=== PATIENT | female | born 1990 | race Caucasian/White ===

== ENCOUNTER 2017-01-18 20:10 | Inpatient (IN) | payer SELFPAY ==
[2017-01-18] MEDS ORDERED: Morphine INJ* 4 MG/ML 1 ML CARPUJECT IV ONE (20:43)
[2017-01-18] MEDS ORDERED: Ondansetron INJ* 2 MG/ML VIAL IV ONE (20:43)
[2017-01-18 20:52] LABS: Hematocrit 40 % (35-47); Hemoglobin 13.5 g/dl (12.0-16.0); Mean Corpuscular HGB Conc 34 g/dl (31-36); Mean Corpuscular Hemoglobin 30 pg (27-31); Mean Corpuscular Volume 89 fL (80-97); Mean Platelet Volume 11 um3 (7.4-10.4); Red Blood Count 4.47 10^6/ul (4.0-5.4); Red Cell Distribution Width 13 % (10.5-15); White Blood Count 12.1 10^3/ul (3.5-10.8)
[2017-01-18 21:07] LABS: ALT 11 U/L (7-52); AST 20 U/L (13-39); Albumin 4.3 g/dL (3.2-5.2); Alkaline Phosphatase 47 U/L (34-104); Anion Gap 8 mmol/L (2-11); BUN/Creatinine Ratio 22.1 (8-20); Blood Urea Nitrogen 21 mg/dL (6-24); CO2 Carbon Dioxide 26 mmol/L (22-32); Calcium 9.4 mg/dL (8.6-10.3); Chloride 101 mmol/L (101-111); EGFR African American 91.4 (>60); EGFR Non-African American 71.1 (>60); Globulin 2.9 g/dL (2-4); Glucose 121 mg/dL (70-100); Lipase 22 U/L (11.0-82.0); Potassium 3.6 mmol/L (3.5-5.0); Sodium 135 mmol/L (133-145); Total Protein 7.2 g/dL (6.4-8.9)
--- NOTE | 2017-01-18 21:48 | RAD ---
INDICATION: Epigastric pain. COMPARISON: There are no prior studies available for comparison. TECHNIQUE: Multiple real-time images of the right upper quadrant were obtained. FINDINGS: The gallbladder appear normal. No gallbladder wall thickening or pericholecystic fluid is present. No intra or extrahepatic ductal distention is present. The common bile duct measured 0.4 cm in diameter. The liver is normal in size without significant focal abnormality. The pancreas is partially obscured by overlying bowel gas. The visualized portion appeared normal. No ductal distention is seen. The right kidney is normal in size without evidence for hydronephrosis. IMPRESSION: NEGATIVE EXAM.
--- NOTE | 2017-01-18 21:53 | RAD ---
INDICATION: Suprapubic pelvic pain. COMPARISON: There are no prior studies available for comparison. TECHNIQUE: Multiple real-time transvaginal images of the pelvis were obtained. FINDINGS: The uterus is normal in size, shape and echogenicity. The uterus measured 8.0 x 3.1 x 4.5 cm. The endometrial echo measured 0.4 cm in thickness. The right ovary measured 2.8 x 1.4 x 1.0 cm. The left ovary measured 3.1 x 1.5 x 1.9 cm. There is vascular flow within both ovaries. There is a small amount of free intraperitoneal fluid in the cul-de-sac and left adnexal region. IMPRESSION: SMALL AMOUNT OF FREE INTRAPERITONEAL FLUID, OTHERWISE UNREMARKABLE STUDY.
[2017-01-18] MEDS ORDERED: Ketorolac INJ* 30 MG/ML 1 ML VIAL IV PUSH ONE (22:06)
[2017-01-18 22:07] LABS: Urine Bilirubin Negative (Negative); Urine Glucose Negative (Negative); Urine Nitrite Negative (Negative)
[2017-01-18] MEDS ORDERED: Ketorolac INJ* 30 MG/ML 1 ML VIAL ONE (22:07)
[2017-01-18 22:17] LABS: Trichomonas Source Endocervical (Negative)
[2017-01-19] MEDS ORDERED: Iohexol 300* (CONTRAST) 10 ML SDV IV ONE (00:05)
--- NOTE | 2017-01-19 00:32 | ED ---
Abdominal Pain/Female - HPI Summary HPI Summary: 27F presents with sudden onset of sharp pain in midabdomen today. She admits to nausea and vomiting. She has never had this before. She states pain is greatest in epigastric region and radiates to bilateral lower quadrants. no vaginal discharge. has appendectomy 4 years ago. no dysuria, hematuria, flank pain, urgency, or dysuria. Pain started out of nowhere and has been coming in waves. took ibuprofen for pain without relief. She denies any flatus, diarrhea or constipation. pain is 10/. - History of Current Complaint Chief Complaint: EDAbdPain Stated Complaint: ABD PAIN Time Seen by Provider: 01/18/17 20:32 Pain Intensity: 10 Allergies/Adverse Reactions: Allergies Allergy/AdvReac Type Severity Reaction Status Date / Time No Known Allergies Allergy Verified 01/18/17 20:30 Home Medications: Home Medications NK [No Home Medications Reported] 01/19/17 [History Confirmed 01/19/17] PMH/Surg Hx/FS Hx/Imm Hx Endocrine/Hematology History: Denies: Hx Diabetes Cardiovascular History: Denies: Hx Hypertension History: Denies: Hx Dialysis, Hx Renal Disease - Surgical History Surgery Procedure, Year, and Place: APPY Infectious Disease History: No Infectious Disease History: Denies: Traveled Outside the [place] in Last 30 Days - Family History Known Family History: Negative: Diabetes - Social History Alcohol Use: Occasionally Substance Use Type: Reports: None Smoking Status (MU): Never Smoked Tobacco Review of Systems Negative: Fever Negative: Chest Pain Negative: Shortness Of Breath Positive: Abdominal Pain, Vomiting. Negative: Diarrhea All Other Systems Reviewed And Are Negative: Yes Physical Exam Triage Information Reviewed: Yes Vital Signs On Initial Exam: Initial Vitals Temp Pulse Resp BP Pulse Ox 96.8 F 90 22 131/67 98 01/18/17 20:11 01/18/17 20:11 01/18/17 20:11 01/18/17 20:11 01/18/17 20:11 Vital Signs Reviewed: Yes Appearance: Positive: Pain Distress Skin: Positive: Warm, Dry Head/Face: Positive: Normal Head/Face Inspection Eyes: Positive: Normal, EOMI, MARIE, Conjunctiva Clear ENT: Positive: Normal ENT inspection, Pharynx normal, TMs normal Respiratory/Lung Sounds: Positive: Clear to Auscultation, Breath Sounds Present Cardiovascular: Positive: Normal, RRR Abdomen Description: Positive: Soft, Other: - tenderness epigastric and bilateral lower quadrants Bowel Sounds: Positive: Present Pelvic Exam: Positive: external exam normal, speculum exam normal, bimanual exam normal, no cerv. motion tender Musculoskeletal: Positive: Normal Neurological: Positive: Normal Psychiatric: Positive: Normal - Fany Coma Scale Coma Scale Total: 15 Diagnostics - Vital Signs Vital Signs Temp Pulse Resp BP Pulse Ox 01/18/17 20:47 20 01/18/17 20:11 96.8 F 90 22 131/67 98 - Laboratory Lab Results: Lab Results 01/18/17 01/18/17 01/18/17 Range/Units 20:40 20:40 21:55 WBC 12.1 H (3.5-10.8) 10^3/ul RBC 4.47 (4.0-5.4) 10^6/ul Hgb 13.5 (12.0-16.0) g/dl Hct 40 (35-47) % MCV 89 (80-97) fL MCH 30 (27-31) pg MCHC 34 (31-36) g/dl RDW 13 (10.5-15) % Plt Count 176 (150-450) 10^3/ul MPV 11 H (7.4-10.4) um3 Neut % (Auto) 80.3 (38-83) % Lymph % (Auto) 13.5 L (25-47) % [place] % (Auto) 5.7 (1-9) % Eos % (Auto) 0.1 (0-6) % Baso % (Auto) 0.4 (0-2) % Absolute Neuts (auto) 9.7 H (1.5-7.7) 10^3/ul Absolute Lymphs (auto) 1.6 (1.0-4.8) 10^3/ul Absolute Monos (auto) 0.7 (0-0.8) 10^3/ul Absolute Eos (auto) 0 (0-0.6) 10^3/ul Absolute Basos (auto) 0 (0-0.2) 10^3/ul Absolute Nucleated RBC 0 10^3/ul Nucleated RBC % 0 Sodium 135 (133-145) mmol/L Potassium 3.6 (3.5-5.0) mmol/L Chloride 101 (101-111) mmol/L Carbon Dioxide 26 (22-32) mmol/L Anion Gap 8 (2-11) mmol/L BUN 21 (6-24) mg/dL Creatinine 0.95 (0.51-0.95) mg/dL Est GFR ( Amer) 91.4 (>60) Est GFR (Non-Af Amer) 71.1 (>60) BUN/Creatinine Ratio 22.1 H (8-20) Glucose 121 H (70-100) mg/dL Calcium 9.4 (8.6-10.3) mg/dL Total Bilirubin 0.50 (0.2-1.0) mg/dL AST 20 (13-39) U/L ALT 11 (7-52) U/L Alkaline Phosphatase 47 (34-104) U/L Troponin I 0.00 (<0.04) ng/mL C-React Prot High Sens 0.71 mg/L Total Protein 7.2 (6.4-8.9) g/dL Albumin 4.3 (3.2-5.2) g/dL Globulin 2.9 (2-4) g/dL Albumin/Globulin Ratio 1.5 (1-3) Lipase 22 (11.0-82.0) U/L Beta HCG, Quant < 0.60 mIU/mL Urine Color Yellow Urine Appearance Clear Urine pH 6.0 (5-9) Ur Specific [place] 1.026 (1.010-1.030) Urine Protein Negative (Negative) Urine Ketones 1+ H (Negative) Urine Blood Negative (Negative) Urine Nitrate Negative (Negative) Urine Bilirubin Negative (Negative) Urine Urobilinogen Negative (Negative) Ur Leukocyte Esterase Negative (Negative) Urine Glucose Negative (Negative) Urine Ascorbic Acid * H (Negative) C.trachomatis (Amp Det) N.gonorrhoeae (Amp Det) T.vaginalis (Amp Det) 01/18/17 Range/Units 22:10 WBC (3.5-10.8) 10^3/ul RBC (4.0-5.4) 10^6/ul Hgb (12.0-16.0) g/dl Hct (35-47) % MCV (80-97) fL MCH (27-31) pg MCHC (31-36) g/dl RDW (10.5-15) % Plt Count (150-450) 10^3/ul MPV (7.4-10.4) um3 Neut % (Auto) (38-83) % Lymph % (Auto) (25-47) % [place] % (Auto) (1-9) % Eos % (Auto) (0-6) % Baso % (Auto) (0-2) % Absolute Neuts (auto) (1.5-7.7) 10^3/ul Absolute Lymphs (auto) (1.0-4.8) 10^3/ul Absolute Monos (auto) (0-0.8) 10^3/ul Absolute Eos (auto) (0-0.6) 10^3/ul Absolute Basos (auto) (0-0.2) 10^3/ul Absolute Nucleated RBC 10^3/ul Nucleated RBC % Sodium (133-145) mmol/L Potassium (3.5-5.0) mmol/L Chloride (101-111) mmol/L Carbon Dioxide (22-32) mmol/L Anion Gap (2-11) mmol/L BUN (6-24) mg/dL Creatinine (0.51-0.95) mg/dL Est GFR ( Amer) (>60) Est GFR (Non-Af Amer) (>60) BUN/Creatinine Ratio (8-20) Glucose (70-100) mg/dL Calcium (8.6-10.3) mg/dL Total Bilirubin (0.2-1.0) mg/dL AST (13-39) U/L ALT (7-52) U/L Alkaline Phosphatase (34-104) U/L Troponin I (<0.04) ng/mL C-React Prot High Sens mg/L Total Protein (6.4-8.9) g/dL Albumin (3.2-5.2) g/dL Globulin (2-4) g/dL Albumin/Globulin Ratio (1-3) Lipase (11.0-82.0) U/L Beta HCG, Quant mIU/mL Urine Color Urine Appearance Urine pH (5-9) Ur Specific [place] (1.010-1.030) Urine Protein (Negative) Urine Ketones (Negative) Urine Blood (Negative) Urine Nitrate (Negative) Urine Bilirubin (Negative) Urine Urobilinogen (Negative) Ur Leukocyte Esterase (Negative) Urine Glucose (Negative) Urine Ascorbic Acid (Negative) C.trachomatis (Amp Det) Pending N.gonorrhoeae (Amp Det) Pending T.vaginalis (Amp Det) Pending Result Diagrams: 01/18/17 20:40 01/18/17 20:40 Lab Statement: Any lab studies that have been ordered have been reviewed, and results considered in the medical decision making process. - CT abd CT Interpretation: Positive (See Comments) - small bowel obstruction with probable transition point near appendectomy CT Interpretation Completed By: Radiologist - Ultrasound No standard instances Ultrasound Interpretation: No Acute Changes Ultrasound Interpretation Completed By: Radiologist Abdominal Pain Fem Course/Dx - Course Course Of Treatment: 27F presents with sudden onset of sharp pain in midabdomen today. She admits to nausea and vomiting. She has never had this before. She states pain is greatest in epigastric region and radiates to bilateral lower quadrants. no vaginal discharge. has appendectomy 4 years ago. no dysuria, hematuria, flank pain, urgency, or dysuria. Pain started out of nowhere and has been coming in waves. took ibuprofen for pain without relief. She denies any flatus, diarrhea or constipation. pain is 10/10. on exam tender in epigastric, RLQ, and LLQ. got u/s gallbladder and pelvis and normal. labs wbc 12. pelvic exam normal. patient still in moderate amount of pain so got CT. CT is showing SBO. discussed wtih dr forrester who agrees to admit. patient agrees to admission. - Diagnoses Differential Diagnosis: Positive: Bowel Obstruction, Gall Bladder Disease, Pelvic Inflammatory Disease Provider Diagnoses: Small bowel obstruction Discharge - Discharge Plan Condition: Stable Disposition: ADMITTED TO [facility] Referrals: No Primary Care Phys,NOPCP [Primary Care Provider] -
[2017-01-19] MEDS ORDERED: Acetaminophen SUPP* 650 MG SUPP PR PRN (00:42)
[2017-01-19] MEDS ORDERED: Famotidine IV * 20 MG in NS 0.9% 100 ML* 100 ML IV ONE (00:43)
[2017-01-19] MEDS: fentaNYL* 50 MCG/ML 2 ML VIAL (100 MCG VIAL) IV SLOW PU PRN ×3 (01:57→06:16)
[2017-01-19] MEDS ORDERED: Famotidine IV* 10 MG/ML 2 ML (20 mg) IV ONE (02:00)
--- NOTE | 2017-01-19 04:17 | HP ---
H&P (Free Text) History and Physical: PCP: none Date/Time: 01/19/2017 0040 CC: abdominal pain, N/V HPI: Ms Xavier is a 27YO female HX remote appendectomy presenting with onset the AM of 01/18 of diffuse cramping abdominal pain which progressed throughout the day to become severe and associated with N/V and subjective F/C, but no sweats, chest pain, SOB, or other issues. ED evaluation is notable for a CT finding of SBO with transition in the RLQ near the appendiceal clips. PMedHx denies Ambulatory Orders NK [No Home Medications Reported] 01/19/17 Allergies No Known Allergies Allergy (Verified 01/18/17 20:30) PSurgHx appendectomy SocHx: no tobacco, alcohol, or recreational drugs; single, lives with a roommate ; [employer] certified registered dental assistant; full code status FamHx: Mother, Father, & Brother: healthy ROS: as above, otherwise reviewed and all were negative vitals: Vital Signs Temp 36.9 C 01/19/17 03:20 Pulse 57 01/19/17 03:20 Resp 14 01/19/17 03:20 BP 117/57 01/19/17 03:20 Pulse Ox 97 01/19/17 03:20 Intake & Output 01/18/17 01/18/17 01/19/17 11:59 23:59 11:59 Weight 61.235 kg 61.235 kg Constitutional: NAD, normally developed, well-nourished white female HEENM: atraumatic; sclera/conjunctiva: anicteric/clear; hearing: clinically intact; oropharynx: clear, mucosa moist Neck: soft tissue: non-tender; thyroid: normal Pulmonary: clear to auscultation bilaterally, good aeration, no accessory muscle use CV: RR/RR, normal S1S2, no carotid bruit, no jugular venous distention, 2+ B DP/ PT, no edema Abdominal: soft, mildly distended, mild/mod diffuse tenderness, no rebound/ guarding/rigidity, hypoactive bowel sounds, no hepatosplenomegaly or masses, no costovertebral angle tenderness Musculoskeletal: general: grossly intact; gait: stable Integumental: normal appearance and texture of exposed skin Psychiatric orientation: AA&O to PPS affect: calm mood: cooperative eye contact: good content: reliable responses: timely insight: good Testing: Lab Results 01/18/17 01/18/17 01/18/17 Range/Units 20:40 20:40 21:55 WBC 12.1 H (3.5-10.8) 10^3/ul RBC 4.47 (4.0-5.4) 10^6/ul Hgb 13.5 (12.0-16.0) g/dl Hct 40 (35-47) % MCV 89 (80-97) fL MCH 30 (27-31) pg MCHC 34 (31-36) g/dl RDW 13 (10.5-15) % Plt Count 176 (150-450) 10^3/ul MPV 11 H (7.4-10.4) um3 Neut % (Auto) 80.3 (38-83) % Lymph % (Auto) 13.5 L (25-47) % [place] % (Auto) 5.7 (1-9) % Eos % (Auto) 0.1 (0-6) % Baso % (Auto) 0.4 (0-2) % Absolute Neuts (auto) 9.7 H (1.5-7.7) 10^3/ul Absolute Lymphs (auto) 1.6 (1.0-4.8) 10^3/ul Absolute Monos (auto) 0.7 (0-0.8) 10^3/ul Absolute Eos (auto) 0 (0-0.6) 10^3/ul Absolute Basos (auto) 0 (0-0.2) 10^3/ul Absolute Nucleated RBC 0 10^3/ul Nucleated RBC % 0 Sodium 135 (133-145) mmol/L Potassium 3.6 (3.5-5.0) mmol/L Chloride 101 (101-111) mmol/L Carbon Dioxide 26 (22-32) mmol/L Anion Gap 8 (2-11) mmol/L BUN 21 (6-24) mg/dL Creatinine 0.95 (0.51-0.95) mg/dL Est GFR ( Amer) 91.4 (>60) Est GFR (Non-Af Amer) 71.1 (>60) BUN/Creatinine Ratio 22.1 H (8-20) Glucose 121 H (70-100) mg/dL Calcium 9.4 (8.6-10.3) mg/dL Total Bilirubin 0.50 (0.2-1.0) mg/dL AST 20 (13-39) U/L ALT 11 (7-52) U/L Alkaline Phosphatase 47 (34-104) U/L Troponin I 0.00 (<0.04) ng/mL C-React Prot High Sens 0.71 mg/L Total Protein 7.2 (6.4-8.9) g/dL Albumin 4.3 (3.2-5.2) g/dL Globulin 2.9 (2-4) g/dL Albumin/Globulin Ratio 1.5 (1-3) Lipase 22 (11.0-82.0) U/L Beta HCG, Quant < 0.60 mIU/mL Urine Color Yellow Urine Appearance Clear Urine pH 6.0 (5-9) Ur Specific [place] 1.026 (1.010-1.030) Urine Protein Negative (Negative) Urine Ketones 1+ H (Negative) Urine Blood Negative (Negative) Urine Nitrate Negative (Negative) Urine Bilirubin Negative (Negative) Urine Urobilinogen Negative (Negative) Ur Leukocyte Esterase Negative (Negative) Urine Glucose Negative (Negative) Urine Ascorbic Acid * H (Negative) C.trachomatis (Amp Det) N.gonorrhoeae (Amp Det) T.vaginalis (Amp Det) 01/18/17 Range/Units 22:10 WBC (3.5-10.8) 10^3/ul RBC (4.0-5.4) 10^6/ul Hgb (12.0-16.0) g/dl Hct (35-47) % MCV (80-97) fL MCH (27-31) pg MCHC (31-36) g/dl RDW (10.5-15) % Plt Count (150-450) 10^3/ul MPV (7.4-10.4) um3 Neut % (Auto) (38-83) % Lymph % (Auto) (25-47) % [place] % (Auto) (1-9) % Eos % (Auto) (0-6) % Baso % (Auto) (0-2) % Absolute Neuts (auto) (1.5-7.7) 10^3/ul Absolute Lymphs (auto) (1.0-4.8) 10^3/ul Absolute Monos (auto) (0-0.8) 10^3/ul Absolute Eos (auto) (0-0.6) 10^3/ul Absolute Basos (auto) (0-0.2) 10^3/ul Absolute Nucleated RBC 10^3/ul Nucleated RBC % Sodium (133-145) mmol/L Potassium (3.5-5.0) mmol/L Chloride (101-111) mmol/L Carbon Dioxide (22-32) mmol/L Anion Gap (2-11) mmol/L BUN (6-24) mg/dL Creatinine (0.51-0.95) mg/dL Est GFR ( Amer) (>60) Est GFR (Non-Af Amer) (>60) BUN/Creatinine Ratio (8-20) Glucose (70-100) mg/dL Calcium (8.6-10.3) mg/dL Total Bilirubin (0.2-1.0) mg/dL AST (13-39) U/L ALT (7-52) U/L Alkaline Phosphatase (34-104) U/L Troponin I (<0.04) ng/mL C-React Prot High Sens mg/L Total Protein (6.4-8.9) g/dL Albumin (3.2-5.2) g/dL Globulin (2-4) g/dL Albumin/Globulin Ratio (1-3) Lipase (11.0-82.0) U/L Beta HCG, Quant mIU/mL Urine Color Urine Appearance Urine pH (5-9) Ur Specific [place] (1.010-1.030) Urine Protein (Negative) Urine Ketones (Negative) Urine Blood (Negative) Urine Nitrate (Negative) Urine Bilirubin (Negative) Urine Urobilinogen (Negative) Ur Leukocyte Esterase (Negative) Urine Glucose (Negative) Urine Ascorbic Acid (Negative) C.trachomatis (Amp Det) Pending N.gonorrhoeae (Amp Det) Pending T.vaginalis (Amp Det) Pending CT abd/pel W, personally reviewed: small bowel obstruction with probable transition point near appendectomy sutures suggesting adhesions. US transvaginal: IMPRESSION: SMALL AMOUNT OF FREE INTRAPERITONEAL FLUID, OTHERWISE UNREMARKABLE STUDY. US RUQ: IMPRESSION: NEGATIVE EXAM. Impression: 27F HX appendectomy presents with SBO DIAGNOSIS & PLAN Primary SBO : NPO : IVFs : pain control : consider surgical consult if no improvement after 48h, sooner for worsening : supportive care Admission Rational: inpatient for SBO not anticipated to adequately resolve w/i 48h to allow for discharge DVTp: ELISHA Code Status: full
[2017-01-19] MEDS: Ondansetron INJ* 2 MG/ML VIAL IV PRN ×2 (05:02→20:15)
[2017-01-19 06:51] LABS: Hematocrit 41 % (35-47); Hemoglobin 13.8 g/dl (12.0-16.0); Mean Corpuscular HGB Conc 34 g/dl (31-36); Mean Corpuscular Hemoglobin 30 pg (27-31); Mean Corpuscular Volume 90 fL (80-97); Red Blood Count 4.53 10^6/ul (4.0-5.4); Red Cell Distribution Width 13 % (10.5-15)
[2017-01-19 07:03] LABS: Comments Flag Yes
[2017-01-19 07:04] LABS: Add Diff/Slide Review? Slide Review Added
--- NOTE | 2017-01-19 07:36 | RAD ---
CLINICAL HISTORY: Epigastric pain with nausea and vomiting. Relevant surgical history includes appendectomy. COMPARISON: None TECHNIQUE: Contrast enhanced CT examination of the abdomen and pelvis from the lung bases through the initial tuberosities. The patient received 81 mL Omnipaque 300 intravenously prior to imaging.The patient received oral contrast as well prior to imaging. FINDINGS: VISUALIZED LUNG BASES: The visualized lung bases are grossly clear. There is no pleural effusion. ABDOMEN AND PELVIS: The liver, spleen, pancreas and adrenal glands are grossly normal in appearance. The gallbladder is normal. The kidneys are normal in appearance without focal mass, calcification or signs of hydronephrosis. Neural contrast has not progressed much further than the proximal small bowel which limits evaluation of the majority of the small bowel and colon. There is no pathologic bowel dilatation in the proximal small bowel. At the right lower quadrant there are mildly dilated loops of small bowel measuring up to 2.9 cm in diameter (axial image 68 and coronal image 48). In the same vicinity there is surgical material at the base of the cecum consistent with the patient's history of appendectomy. Distal this the gas and stool-filled colon is unremarkable. There is a [id number] amount of free fluid in the pelvis and lower abdomen. There is no gross retroperitoneal or mesenteric lymphadenopathy. The pelvic viscera is normal in appearance. The abdominal aorta and iliac arteries are normal in course and diameter. There are no sinister bone lesions. IMPRESSION: There is top normal small bowel dilatation at the right of midline pelvis and right lower quadrant in the vicinity of surgical material at the site of the patient's appendectomy. There is also a small to moderate amount of free fluid in the cul-de-sac and low abdomen. This constellation of findings could be partial small bowel obstruction, perhaps related to adhesions, related to the patient's appendectomy. Alternatively free fluid in the pelvis of a woman of this age can be a physiologic finding. Please correlate to stage of menstrual cycle.
[2017-01-19] MEDS ORDERED: Ketorolac INJ* 15 MG/ML 1 ML VIAL ONE (07:51)
[2017-01-19] MEDS ORDERED: Morphine INJ* 2 MG/ML 1 ML SYRINGE (TWO MG - NEW SYRINGE VERSION) ONE (07:52)
[2017-01-19] MEDS ORDERED: Famotidine IV * 20 MG in NS 0.9% 100 ML* 100 ML IVPB SCH (09:00)
[2017-01-19] MEDS: Famotidine IV* 10 MG/ML 2 ML (20 mg) IV SCH ×2 (09:51→20:15)
[2017-01-19] MEDS: Morphine INJ* 2 MG/ML 1 ML SYRINGE (TWO MG - NEW SYRINGE VERSION) IV PRN ×3 (11:05→23:40)
--- NOTE | 2017-01-19 13:37 | PN ---
Subjective Date of Service: 01/19/17 Interval History: Patient seen and examined at bedside. Patient reports continued abdominal pain but no further emesis or nausea. No flatus yet. Morphine working for pain. Denies any fevers/chills. Objective Active Medications: Acetaminophen (Tylenol Supp*) 650 mg [place] Q6H PRN Famotidine (Pepcid Iv*) 20 mg IV BID MADDISON Lactated Ringer's (Lactated Ringers 1000 Ml Bag*) 1,000 mls @ 125 mls/hr IV PER RATE MADDISON Ketorolac Tromethamine (Toradol Inj*) 15 mg IV PUSH Q6H PRN Lorazepam (Ativan Inj*) 0.5 mg IV BEDTIME PRN Morphine Sulfate (Morphine Inj (Syringe)*) 2 mg IV Q3H PRN Ondansetron HCl (Zofran Inj*) 4 mg IV Q6H PRN . Oxygen Devices in Use Now: None Appearance: sitting up in bed, NAD Eyes: No Scleral Icterus, PERRLA Ears/Nose/Mouth/Throat: NL Teeth, Lips, Gums Neck: NL Appearance and Movements; NL JVP Respiratory: Symmetrical Chest Expansion and Respiratory Effort, Clear to Auscultation Cardiovascular: NL Sounds; No Murmurs; No JVD, RRR Abdominal: - - LLQ tenderness; hyperactive BS Extremities: No Edema Skin: No Rash or Ulcers Neurological: Alert and Oriented x 3 Nutrition: Taking PO's, - - NPO Result Diagrams: 01/19/17 05:52 01/18/17 20:40 Additional Lab and Data: . Assess/Plan/Problems-Billing Patient is a 27 y/o F w/ hx only of appendectomy who presented to the ER w/ the c/o of abdominal pain found to have a small bowel obstruction. - Patient Problems (1) Small bowel obstruction due to adhesions Comment: Continue conservative medical management. NPO, IVF, moprhine and toradol for pain. repeat KUB in AM. Recheck CBC, BMP in AM. (2) History of appendectomy Comment: see above (3) DVT prophylaxis Comment: low risk- ambulation (4) Full code status Status and Disposition: Inpatient for SBO. Discharge home when stable.
[2017-01-19] MEDS: Ketorolac INJ* 15 MG/ML 1 ML VIAL IV PUSH PRN ×2 (14:11→20:15)
[2017-01-20] MEDS ORDERED: PROCHLORPERAZINE INJ 5 MG/ML 2 ML VIAL IV PRN (01:27)
[2017-01-20] MEDS ORDERED: PROCHLORPERAZINE INJ 5 MG/ML 2 ML VIAL ONE (01:31)
[2017-01-20 07:02] LABS: Hematocrit 39 % (35-47); Hemoglobin 13.3 g/dl (12.0-16.0); Mean Corpuscular HGB Conc 34 g/dl (31-36); Mean Corpuscular Hemoglobin 30 pg (27-31); Mean Corpuscular Volume 90 fL (80-97); Mean Platelet Volume 12 um3 (7.4-10.4); Red Blood Count 4.38 10^6/ul (4.0-5.4); Red Cell Distribution Width 13 % (10.5-15); White Blood Count 11.9 10^3/ul (3.5-10.8)
[2017-01-20 07:09] LABS: BUN/Creatinine Ratio 19.3 (8-20); EGFR African American 99.9 (>60); EGFR Non-African American 77.7 (>60)
[2017-01-20] MEDS: Morphine INJ* 2 MG/ML 1 ML SYRINGE (TWO MG - NEW SYRINGE VERSION) IV PRN ×4 (07:26→21:03)
[2017-01-20] MEDS: Ketorolac INJ* 15 MG/ML 1 ML VIAL IV PUSH PRN ×2 (08:16→17:18)
--- NOTE | 2017-01-20 08:19 | RAD ---
HISTORY: Follow-up small bowel obstruction COMPARISONS: CT dated January 18, 2017 VIEWS: Frontal supine and upright views of the abdomen. FINDINGS: BOWEL: Again noted is distention with mild dilatation of small bowel loops centrally with paucity of distal bowel gas CALCULI: There are no abnormal calculi. BONES AND SOFT TISSUES: There are no osseous abnormalities. OTHER FINDINGS: The lung bases are clear. There is no subphrenic gas. IMPRESSION: PERSISTENT SMALL BOWEL OBSTRUCTIVE PATTERN
[2017-01-20] MEDS: Famotidine IV* 10 MG/ML 2 ML (20 mg) IV SCH ×2 (09:47→20:50)
[2017-01-20] MEDS: Ondansetron INJ* 2 MG/ML VIAL IV PRN ×2 (14:21→21:03)
--- NOTE | 2017-01-20 16:13 | PN ---
Subjective Date of Service: 01/20/17 Interval History: Patient seen and examined at bedside. Pt reports continued nausea and vomiting. Denies fever, chills, shortness of breath, chest discomfort, diarrhea. Pt states that she has been "burping" but not passing flatus or had a BM. Family History: Unchanged from Admission Social History: Unchanged from Admission Past Medical History: Unchanged from Admission Objective Active Medications: Acetaminophen (Tylenol Supp*) 650 mg [place] Q6H PRN Reason: FEVER/PAIN Famotidine (Pepcid Iv*) 20 mg IV BID MADDISON Lactated Ringer's (Lactated Ringers 1000 Ml Bag*) 1,000 mls @ 125 mls/hr IV PER RATE MADDISON Ketorolac Tromethamine (Toradol Inj*) 15 mg IV PUSH Q6H PRN Reason: PAIN Stop: 01/20/17 23:00 Lorazepam (Ativan Inj*) 0.5 mg IV BEDTIME PRN Reason: SLEEP Morphine Sulfate (Morphine Inj (Syringe)*) 2 mg IV Q3H PRN Reason: PAIN - MILD Ondansetron HCl (Zofran Inj*) 4 mg IV Q6H PRN Reason: NAUSEA Prochlorperazine Edisylate (Compazine Inj*) 10 mg IV Q6H PRN Reason: NAUSEA Vital Signs 01/19/17 01/19/17 01/19/17 17:20 19:45 20:00 Temperature 98.5 F Pulse Rate 59 63 Respiratory 17 19 Rate Blood Pressure 134/69 (mmHg) O2 Sat by Pulse 98 97 Oximetry 01/19/17 01/19/17 01/20/17 23:30 23:40 00:40 Temperature 98.6 F Pulse Rate 72 Respiratory 16 18 18 Rate Blood Pressure 136/72 (mmHg) O2 Sat by Pulse 97 Oximetry 01/20/17 01/20/17 01/20/17 04:00 07:18 07:26 Temperature 98.5 F 98.4 F Pulse Rate 72 84 Respiratory 16 18 18 Rate Blood Pressure 126/58 136/80 (mmHg) O2 Sat by Pulse 93 97 Oximetry 01/20/17 01/20/17 01/20/17 08:00 09:47 10:50 Temperature 98.2 F Pulse Rate 78 Respiratory 18 18 18 Rate Blood Pressure 126/70 (mmHg) O2 Sat by Pulse 98 Oximetry Oxygen Devices in Use Now: None Appearance: NAD, laying in bed Ears/Nose/Mouth/Throat: Mucous Membranes Moist Respiratory: Symmetrical Chest Expansion and Respiratory Effort, Clear to Auscultation Cardiovascular: NL Sounds; No Murmurs; No JVD, RRR Abdominal: NL Sounds; No Tenderness; No Distention - mild tenderness with palpation Extremities: No Edema Skin: No Rash or Ulcers Neurological: Alert and Oriented x 3, NL Muscle Strength and Tone Lines/Tubes/Other Access: Clean, Dry and Intact Peripheral IV - site benign Nutrition: Taking PO's Result Diagrams: 01/20/17 05:30 01/20/17 05:30 Assess/Plan/Problems-Billing Ms. Xavier is a 27 y/o F w/ hx only of appendectomy who presented to the ER w/ the c/o of abdominal pain found to have a small bowel obstruction. - Patient Problems (1) Small bowel obstruction due to adhesions Code(s): K56.50 - INTESTNL ADHESIONS, UNSP TO PARTIAL VERSUS COMPLETE OBST SNOMED Code(s): 364214697 Comment: - Xray today shows persistent SBO. - Continue conservative medical management (NPO, IVF, moprhine and toradol for pain). - Will ask surgery to consult (2) History of appendectomy Code(s): Z90.49 - ACQUIRED ABSENCE OF OTHER SPECIFIED PARTS OF DIGESTIVE TRACT SNOMED Code(s): 559000621 Comment: - see above (3) DVT prophylaxis Code(s): WQC9455 - SNOMED Code(s): 107577020 Comment: - low risk- ambulation (4) Full code status Code(s): Z78.9 - OTHER SPECIFIED HEALTH STATUS SNOMED Code(s): 941487087 Status and Disposition: Inpatient for SBO. Discharge home when medically stable.
--- NOTE | 2017-01-20 20:41 | CONS ---
CC: Dr. Cali, [facility] * SURGICAL CONSULTATION REPORT: DATE OF CONSULT: 01/20/17 PROVIDER: Dr. Regan Cali. LOCATION: This patient is seen in room 410 at [facility] on , 01/20/17. CHIEF COMPLAINT: Persistent small bowel obstruction. HISTORY OF PRESENT ILLNESS: The patient is a 27-year-old female admitted on the hospitalist service, 01/18/17, with diffuse cramping abdominal pain. She has a history of the laparoscopic appendectomy 6 year ago in [facility]. She has been generally healthy. She states that on Tuesday morning, 01/18/17, she awoke with a "stomach ache." She ate lunch around 2 p.m. and at 4 p.m. started to have sharp cramping abdominal pain that was unrelenting and she presented to the emergency room around 7:30 p.m. She had nausea and vomiting and subjective fever and chills, but no sweats, chest pain, shortness of breath , or cough. She had a formed bowel movement on the morning of 01/18/17. No blood in the stool. A CAT scan in the emergency department revealed small bowel obstruction with transition in the right lower quadrant near the appendiceal clips. Her hospitalization over the past few days is noted for vomiting. Over the last 24 hours, she states that she vomited 3 times; she has not passed any flatus; she states that Toradol takes her pain down to 3 and without it, her pain is rated around 6. She is on an antiemetic, which is controlling her nausea. Her abdominal x-ray today as reviewed by myself and by Dr. Cali reveals a persistent small bowel obstruction pattern. PAST MEDICAL HISTORY: Generally healthy, no acute or chronic conditions. PAST SURGICAL HISTORY: Laparoscopic appendectomy at age 21. MEDICATIONS: Oral contraceptive. ALLERGIES: No known drug allergies. FAMILY HISTORY: Mother and father alive and well. Her brother is status post appendectomy. No known family history of gastrointestinal conditions. 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 She is a nonsmoker. She denies the use of alcohol or other substances. REVIEW OF SYSTEMS: Constitutional: Denies any excessive fatigue or weight loss. Denies any current fever or chills. Endocrine: No diabetes or thyroid conditions. Respiratory: No shortness of breath or chronic cough. Cardiovascular: No chest pain or palpitations. Gastrointestinal: Please see history of present illness. Genitourinary: No dysuria or hematuria. Musculoskeletal: No chronic pain. Neurologic: No history of seizures or chronic migraine headaches. PHYSICAL EXAM: General Survey: The patient is a 27-year-old female, well- developed, well-nourished, in no acute distress. Height 5 feet 8 inches, weight 135 pounds, body mass index 20.5. Blood pressure 132/69, pulse 90 and regular, respiratory rate 17, temperature 98.3 tympanic, O2 saturation on room air 98%. Skin: Warm, dry, intact. HEENT: Benign. Neck: Supple. No cervical lymphadenopathy. Back: No CVA tenderness. Lungs: Breath sounds bilaterally clear and equal. Heart: Regular rate and rhythm. No murmurs or rubs. Abdomen: Quiet, softly distended, diffuse tenderness in the epigastric and periumbilical region. No rebound, guarding, or rigidity. No obvious masses or organomegaly, but exam is limited by the patient's discomfort. Pelvic and Rectal Exam: Deferred. Extremities: Warm without edema or skin ulceration. Neurologic: Alert and oriented x3. IMPRESSION: Persistent small bowel obstruction pattern on abdominal x-rays associated with nausea and vomiting and requiring analgesics and antiemetics. PLAN: Abdominal x-ray tomorrow morning; the patient is aware that she may require a diagnostic laparoscopy if there is no improvement by tomorrow and she is in agreement with that plan. TIME SPENT: With greater than 50% in [id number] history taking and coordination of care 60 minutes. JONO DOWNEY NP [id number]/CPS #: [id number] RYANNE
[2017-01-20] MEDS: LORazepam INJ* 2 MG/ML 1 ML VIAL IV PRN (22:20)
[2017-01-20] MEDS ORDERED: HYDROmorphone INJ* 1 MG/ML CARPUJECT SYRINGE IV ONE (22:44)
[2017-01-21] MEDS: Morphine INJ* 2 MG/ML 1 ML SYRINGE (TWO MG - NEW SYRINGE VERSION) IV PRN (01:16)
[2017-01-21] MEDS: HYDROmorphone INJ* 1 MG/ML CARPUJECT SYRINGE IV PRN ×5 (01:53→16:59)
[2017-01-21] MEDS: Ketorolac INJ* 15 MG/ML 1 ML VIAL IV PRN ×2 (01:55→07:52)
[2017-01-21] MEDS: Famotidine IV* 10 MG/ML 2 ML (20 mg) IV SCH (07:53)
--- NOTE | 2017-01-21 08:47 | RAD ---
INDICATION: Bowel [id number] COMPARISON: January 20, 2017 TECHNIQUE: A single view of the abdomen is submitted. FINDINGS: Bones: There are no acute bony findings. Soft tissues: The soft tissues appear normal. The psoas margins are sharp. Bowel gas pattern: There are multiple air-filled and dilated loops of small bowel similar in appearance to prior imaging. There is a small amount of air within the decompressed colon. Calcifications: There are no abnormal calcifications. Other: None IMPRESSION: SMALL BOWEL OBSTRUCTION WITHOUT SIGNIFICANT CHANGE.
--- NOTE | 2017-01-21 08:59 | PN ---
Subjective Date of Service: 01/21/17 Interval History: Patient seen and examined at bedside. Denies chills, shortness of breath, chest discomfort, diarrhea. Pt states that she has passed a small amount of flatus this AM. Continues to have abdominal pain and nausea. Feels like the abdominal pain was worse overnight. Reports feeling warm overnight. Family History: Unchanged from Admission Social History: Unchanged from Admission Past Medical History: Unchanged from Admission Objective Active Medications: Acetaminophen (Tylenol Supp*) 650 mg [place] Q6H PRN Reason: FEVER/PAIN Famotidine (Pepcid Iv*) 20 mg IV BID [place] Hydromorphone HCl (Dilaudid Injic*) 1 mg IV Q2H PRN Reason: PAIN Lactated Ringer's (Lactated Ringers 1000 Ml Bag*) 1,000 mls @ 125 mls/hr IV PER RATE [facility] Ketorolac Tromethamine (Toradol Inj*) 15 mg IV Q6H PRN Reason: PAIN Lorazepam (Ativan Inj*) 0.5 mg IV BEDTIME PRN Reason: SLEEP Ondansetron HCl (Zofran Inj*) 4 mg IV Q6H PRN Reason: NAUSEA Prochlorperazine Edisylate (Compazine Inj*) 10 mg IV Q6H PRN Reason: NAUSEA Vital Signs 01/20/17 01/20/17 01/20/17 09:47 10:50 11:57 Temperature 98.2 F Pulse Rate 78 Respiratory 18 18 18 Rate Blood Pressure 126/70 (mmHg) O2 Sat by Pulse 98 Oximetry 01/20/17 01/20/17 01/20/17 15:48 15:56 19:51 Temperature 98.3 F 98.0 F Pulse Rate 91 76 Respiratory 17 16 18 Rate Blood Pressure 132/69 138/65 (mmHg) O2 Sat by Pulse 98 96 Oximetry 01/20/17 01/20/17 01/21/17 22:48 23:57 01:03 Temperature 98.3 F Pulse Rate 78 Respiratory 22 16 18 Rate Blood Pressure 115/50 (mmHg) O2 Sat by Pulse 95 Oximetry 01/21/17 01/21/17 01/21/17 03:19 03:20 03:46 Temperature 97.5 F Pulse Rate 78 Respiratory 22 18 16 Rate Blood Pressure 143/71 (mmHg) O2 Sat by Pulse 96 Oximetry 11/12/2801/21/17 01/21/17 06:01 07:26 07:29 Temperature 98.8 F Pulse Rate 83 Respiratory 16 16 16 Rate Blood Pressure 148/80 (mmHg) O2 Sat by Pulse 94 Oximetry Oxygen Devices in Use Now: None Appearance: NAD, laying in bed Ears/Nose/Mouth/Throat: Mucous Membranes Moist Respiratory: Symmetrical Chest Expansion and Respiratory Effort, Clear to Auscultation Cardiovascular: NL Sounds; No Murmurs; No JVD, RRR Abdominal: - - Abdomen soft, slightly distended, tender in the right lower quad. Bowel sounds present Extremities: No Edema Skin: No Rash or Ulcers Neurological: Alert and Oriented x 3, NL Muscle Strength and Tone Result Diagrams: 01/20/17 05:30 01/20/17 05:30 Additional Lab and Data: . Assess/Plan/Problems-Billing Ms. Xavier is a 27 y/o F w/ hx only of appendectomy who presented to the ER w/ the c/o of abdominal pain found to have a small bowel obstruction. - Patient Problems (1) Small bowel obstruction due to adhesions Code(s): K56.50 - INTESTNL ADHESIONS, UNSP TO PARTIAL VERSUS COMPLETE OBST SNOMED Code(s): 185810011 Comment: - Xray continues to show persistent SBO. - Continue conservative medical management (NPO, IVF, moprhine and toradol for pain). - Appreciate surgery input, plan for a diagnostic lap later today. According to the RCRI she has 1 point, placing her at a class II risk and a 0.9 % risk of a major cardiac event. She is medically optimized for surgery. (2) History of appendectomy Code(s): Z90.49 - ACQUIRED ABSENCE OF OTHER SPECIFIED PARTS OF DIGESTIVE TRACT SNOMED Code(s): 892951068 Comment: - see above (3) DVT prophylaxis Code(s): OVO8139 - SNOMED Code(s): 900877890 Comment: - low risk- ambulation (4) Full code status Code(s): Z78.9 - OTHER SPECIFIED HEALTH STATUS SNOMED Code(s): 103081531 Status and Disposition: Inpatient for SBO. Discharge home when medically stable.
--- NOTE | 2017-01-21 09:01 | PN ---
Progress Note - Progress Note Date of Service: 01/21/17 SOAP: Subjective: Reports feeling the same, no improvement of her pain. Had an episode of severe RLQ abdominal pain last night with associated nausea, no vomiting. Passed a very small amount of flatus this AM. Denies fever or chills. Still NPO. Objective: Awake and alert, appears comfortable. VSS, Tmax 98.9 Lungs CTA bilat. Heart RRR, no murmurs Abdomen soft, moderately distended. Moderate RLQ tenderness on exam with some guarding. No rigidity or rebound. No hernias or masses. Bowel sounds hypoactive throughout. Ext. without edema No labs today AXR with persistent SBO, no improvement. Assessment: A 27 y/o female with persistent SBO, with transition zone at RLQ, s/p Lap appendectomy 6 years ago. Plan: Discussed proceeding with surgery with patient, giving no improvement since her admission 3 days ago. Keep NPO IVF, GI prophylaxis Likely to OR this afternoon for a diagnostic laparoscopy. Patient understands and agrees to plans.
[2017-01-21] MEDS: Ondansetron INJ* 2 MG/ML VIAL IV PRN (13:18)
[2017-01-21] MEDS ORDERED: Adenosine* 3 MG/ML VIAL IV PUSH ONE (18:47)
[2017-01-21] MEDS ORDERED: LORazepam INJ* 2 MG/ML 1 ML VIAL IV PUSH ONE (19:10)
[2017-01-21] MEDS ORDERED: metroNIDAZOLE IV 500 MG/100ML* 500 MG/100 ML BAG IVPB ONE (19:17)
[2017-01-21 19:18] LABS: Hematocrit 41 % (35-47); Hemoglobin 14.1 g/dl (12.0-16.0); Mean Corpuscular HGB Conc 34 g/dl (31-36); Mean Corpuscular Hemoglobin 31 pg (27-31); Mean Corpuscular Volume 89 fL (80-97); Mean Platelet Volume 11 um3 (7.4-10.4); Red Cell Distribution Width 13 % (10.5-15); White Blood Count 6.9 10^3/ul (3.5-10.8)
[2017-01-21 19:32] LABS: Calcium 8.3 mg/dL (8.6-10.3); EGFR African American 101.2 (>60); EGFR Non-African American 78.7 (>60); Potassium 4.1 mmol/L (3.5-5.0)
[2017-01-21] MEDS ORDERED: ceFAZolin 2 GM PREMIX (*) 2 GM/50 ML BAG IVPB ONE (20:45)
[2017-01-21] MEDS ORDERED: Midazolam* 1 MG/ML 5 ML VIAL (5 MG) ONE (20:50)
[2017-01-21] MEDS ORDERED: fentaNYL* 50 MCG/ML 2 ML VIAL (100 MCG VIAL) ONE ×2 (20:50→21:40)
[2017-01-21] MEDS ORDERED: KETAMINE HCL* 50 MG/ML 10 ML VIAL ONE (20:50)
[2017-01-21] MEDS ORDERED: Succinylcholine* 20 MG/ML 10 ML VIAL ONE (21:14)
[2017-01-21] MEDS ORDERED: Bupivacaine 0.5% SDV PF* 30 ML VIAL ONE (21:30)
[2017-01-21] MEDS ORDERED: Fluorescein 10% INJ* 100 MG/ML AMP ONE (22:00)
[2017-01-21] MEDS ORDERED: Neostigmine Methylsulfate* 2 MG/2 ML SYRINGE ONE (23:09)
[2017-01-21] MEDS ORDERED: Propofol* 10 MG/ML 20 ML BTL IV PUSH ONE (23:09)
[2017-01-21] MEDS ORDERED: PROCHLORPERAZINE INJ 5 MG/ML 2 ML VIAL ONE (23:09)
[2017-01-21] MEDS ORDERED: Glycopyrrolate IV* 0.2 MG/ML 1 ML VIAL ONE ×2 (23:09→23:51)
[2017-01-21] MEDS ORDERED: Ondansetron INJ* 2 MG/ML VIAL ONE (23:09)
[2017-01-21] MEDS ORDERED: Dexamethasone IV* 4 MG/ML 1 ML (4 MG) ONE (23:09)
[2017-01-21] MEDS ORDERED: Lidocaine 2% PF * 5 ML VIAL ONE (23:09)
[2017-01-21] MEDS ORDERED: Morphine INJ* 10 MG/ML 1 ML CARPUJECT ONE (23:11)
[2017-01-21] MEDS ORDERED: Phenylephrine INJ* 10 MG/ML 1 ML VIAL (10 MG) ONE (23:54)
--- NOTE | 2017-01-22 00:26 | PN ---
Progress Note - Progress Note Date of Service: 01/22/17 Note: Brief Operative Note: Preop Dx: SBO Postop Dx: Ischemic and necrotic small bowel secondary to incarcerated internal hernia Procedure: Diagnostic laparoscopy; laparotomy; Right hemicolectomy Anesthesia: GET Surgeon: Ramona Asst: ELIZABETH Knight Fluids: 5000 ml RL EBL: 150 ml Drains: none Specimen: Right colon and distal small bowel Findings: dictated
[2017-01-22] MEDS ORDERED: NS 0.9% 500 ML* 500 ML IV ONE (00:34)
[2017-01-22] MEDS ORDERED: HYDROmorphone PCA* 20 MG/20 ML PCA.SYRING ONE (00:57)
[2017-01-22] MEDS ORDERED: HYDROmorphone PCA* 20 MG/20 ML PCA.SYRING PCA SCH (01:00)
[2017-01-22] MEDS ORDERED: NS 0.9% 500 ML* 500 ML IV PRN (01:00)
[2017-01-22] MEDS: NS 0.9% 1000 ML* 1,000 ML IV SCH ×2 (03:09→07:20)
[2017-01-22] MEDS ORDERED: metroNIDAZOLE IV 500 MG/100ML* 500 MG/100 ML BAG IVPB SCH (04:00)
[2017-01-22] MEDS: Famotidine IV* 10 MG/ML 2 ML (20 mg) IV SCH ×3 (04:10→21:05)
[2017-01-22] MEDS ORDERED: ceFAZolin 2 GM PREMIX (*) 2 GM/50 ML BAG IVPB SCH (05:00)
[2017-01-22] MEDS: Heparin VIAL(*) 5000 UNITS/ML VIAL (FIVE THOUSAND) SUBCUT SCH ×3 (05:59→21:05)
[2017-01-22 07:00] LABS: Hematocrit 36 % (35-47); Hemoglobin 12.5 g/dl (12.0-16.0); Mean Corpuscular HGB Conc 35 g/dl (31-36); Mean Corpuscular Hemoglobin 31 pg (27-31); Mean Corpuscular Volume 90 fL (80-97); Mean Platelet Volume 11 um3 (7.4-10.4); Red Blood Count 4.05 10^6/ul (4.0-5.4); Red Cell Distribution Width 13 % (10.5-15); White Blood Count 6.8 10^3/ul (3.5-10.8)
[2017-01-22 07:14] LABS: BUN/Creatinine Ratio 21.9 (8-20); Calcium 7.5 mg/dL (8.6-10.3); EGFR African American 123.9 (>60); EGFR Non-African American 96.4 (>60); Potassium 4.2 mmol/L (3.5-5.0)
[2017-01-22 07:52] LABS: Magnesium 1.3 mg/dL (1.9-2.7); Phosphorus 1.6 mg/dL (2.5-5.0)
[2017-01-22] MEDS ORDERED: Magnesium Sulfate IV* 3 GM in NS 0.9% 100 ML* 100 ML IVPB ONE (08:30)
[2017-01-22] MEDS ORDERED: Potassium Phosphate IV* 15 MMOLE in NS 0.9% 250 ML* 250 ML IVPB ONE (08:30)
--- NOTE | 2017-01-22 08:55 | PN ---
Subjective Date of Service: 01/22/17 Interval History: pt feels "sore in her abdomen". HR had been in 115-[address] c/o dry mouth Family History: Unchanged from Admission Social History: Unchanged from Admission Past Medical History: Unchanged from Admission Objective Active Medications: Acetaminophen (Tylenol Supp*) 650 mg NM Q6H PRN PRN Reason: FEVER/PAIN Famotidine (Pepcid Iv*) 20 mg IV BID [facility] Last Admin: 01/22/17 04:10 Dose: Not Given Heparin Sodium (Porcine) (Heparin Vial(*)) 5,000 units SUBCUT Q8HR [facility] Last Admin: 01/22/17 05:59 Dose: 5,000 units Lactated Ringer's (Lactated Ringers 1000 Ml Bag*) 1,000 mls @ 125 mls/hr IV PER RATE [facility] Last Admin: 01/21/17 16:59 Dose: 125 mls/hr Hydromorphone HCl (Dilaudid [employer]*) 20 mg in 20 mls @ 0 mls/hr [employer] .change Q24H [facility]; Per Protocol PRN Reason: Protocol Sodium Chloride (Ns 0.9% 500 Ml Bag*) 500 mls @ 1,000 mls/hr IV ONCE PRN PRN Reason: SEE COMMENTS Magnesium Sulfate 3 gm/ Sodium (Chloride) 106 mls @ 53 mls/hr IVPB ONCE ONE Stop: 01/22/17 10:29 Potassium Phosphate 15 mmole/ (Sodium Chloride) 255 mls @ 42 mls/hr IVPB ONCE ONE Stop: 01/22/17 14:34 Piperacillin Sod/Tazobactam (Sod 3.375 gm/ Sodium Chloride) 100 mls @ 25 mls/ hr IVPB Q8H [facility] Ketorolac Tromethamine (Toradol Inj*) 15 mg IV Q6H PRN PRN Reason: PAIN Last Admin: 01/21/17 07:52 Dose: 15 mg Lorazepam (Ativan Inj*) 0.5 mg IV BEDTIME PRN PRN Reason: SLEEP Last Admin: 01/20/17 22:20 Dose: 0.5 mg Ondansetron HCl (Zofran Inj*) 4 mg IV Q6H PRN PRN Reason: NAUSEA Last Admin: 01/21/17 13:18 Dose: 4 mg Prochlorperazine Edisylate (Compazine Inj*) 10 mg IV Q6H PRN PRN Reason: NAUSEA Last Admin: 01/20/17 22:19 Dose: 10 unit Vital Signs 01/21/17 01/21/17 01/21/17 08:57 11:37 12:14 Temperature 97.9 F Pulse Rate 120 Respiratory 16 16 16 Rate Blood Pressure 148/94 (mmHg) O2 Sat by Pulse 95 Oximetry 01/21/17 01/21/17 01/21/17 13:17 14:57 15:35 Temperature 98.7 F Pulse Rate 134 Respiratory 16 16 16 Rate Blood Pressure 148/92 (mmHg) O2 Sat by Pulse 95 Oximetry 01/21/17 01/21/17 01/21/17 16:59 18:21 18:23 Temperature 100.7 F Pulse Rate 148 Respiratory 18 16 18 Rate Blood Pressure 139/84 (mmHg) O2 Sat by Pulse 93 Oximetry 01/21/17 01/21/17 01/22/17 19:56 20:00 00:25 Temperature 101.4 F 97.5 F Pulse Rate 131 105 Respiratory 14 18 20 Rate Blood Pressure 148/83 129/85 (mmHg) O2 Sat by Pulse 95 100 Oximetry 01/22/17 01/22/17 01/22/17 00:30 00:35 00:40 Temperature Pulse Rate 105 105 105 Respiratory 18 18 18 Rate Blood Pressure 136/93 149/95 142/83 (mmHg) O2 Sat by Pulse 100 100 98 Oximetry 01/22/17 01/22/17 01/22/17 00:45 01:00 01:13 Temperature Pulse Rate 105 105 105 Respiratory 18 18 20 Rate Blood Pressure 138/82 143/82 124/80 (mmHg) O2 Sat by Pulse 98 99 99 Oximetry 01/22/17 01/22/17 01/22/17 01:15 01:50 01:53 Temperature 99.9 F 100.3 F Pulse Rate 106 109 Respiratory 18 18 18 Rate Blood Pressure 124/80 132/62 (mmHg) O2 Sat by Pulse 99 93 Oximetry 01/22/17 01/22/17 01/22/17 02:12 02:54 04:20 Temperature 98.5 F 98.5 F Pulse Rate 105 135 121 Respiratory 18 16 16 Rate Blood Pressure 123/79 127/69 126/67 (mmHg) O2 Sat by Pulse 98 95 95 Oximetry 1101/22/17 01/22/17 05:56 06:47 07:16 Temperature 99.0 F 101.3 F Pulse Rate 121 121 130 Respiratory 16 16 18 Rate Blood Pressure 125/78 126/67 122/57 (mmHg) O2 Sat by Pulse 99 95 93 Oximetry 01/22/17 01/22/17 07:37 07:55 Temperature Pulse Rate 117 Respiratory 18 Rate Blood Pressure (mmHg) O2 Sat by Pulse 94 Oximetry Oxygen Devices in Use Now: Simple Face Mask - at 4L, OxyMask Appearance: 27 yo F in nAD, AAOx3 Eyes: No Scleral Icterus, PERRLA Ears/Nose/Mouth/Throat: NL Teeth, Lips, Gums, Mucous Membranes Moist Neck: NL Appearance and Movements; NL JVP, Trachea Midline Respiratory: Symmetrical Chest Expansion and Respiratory Effort, Clear to Auscultation Cardiovascular: NL Sounds; No Murmurs; No JVD, - - tachy, no murmur Abdominal: - - midline incision with post op dressings, not uncovered, Soft, minimally tender, tympanic, BS+, no guarding Lymphatic: No Cervical Adenopathy Extremities: No Edema, No Clubbing, Cyanosis Skin: No Rash or Ulcers, No Nodules or Sclerosis Neurological: Alert and Oriented x 3, NL Muscle Strength and Tone Result Diagrams: 01/22/17 06:38 01/22/17 06:38 Additional Lab and Data: . Assess/Plan/Problems-Billing Ms. Xavier is a 27 y/o F w/ hx only of appendectomy who presented to the ER w/ the c/o of abdominal pain found to have a small bowel obstruction. - Patient Problems (1) Small bowel obstruction due to adhesions Comment: -s/p ex lap on 01/21/17-found to have necrotic bowel s/p resection of 2 ft of R colon. Abd closed. surgery following. Due to extensive bowel necrosis and SIRS periop, will cont antibiotics-switched to Zosyn per surgery. D/w Dr. 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 Cont telem Status and Disposition: Inpatient
[2017-01-22] MEDS ORDERED: ZOSYN 3.375 GM x ONE DOSE over 30 miuntes IVPB ×2 (09:00)
--- NOTE | 2017-01-22 09:36 | PN ---
Progress Note - Progress Note Date of Service: 01/22/17 SOAP: Subjective: Pain controlled with [employer] TECHNICIAN No SOB Objective: tmax 101.3 Temp Pulse Resp BP Pulse Ox 101.3 F 117 18 122/57 94 01/22/17 07:16 01/22/17 07:55 01/22/17 07:37 01/22/17 07:16 01/22/17 07:37 Intake & Output 01/20/17 01/21/17 01/22/17 01/23/17 06:59 06:59 06:59 06:59 Intake Total 1966 3950 1884 1254 Output Total 250 630 875 Balance 1716 3320 1009 1254 Intake: IV Fluids 1965 3750 332 254 LR 1965 3750 317 254 NS (0.9%) 15 IVPB 1552 1000 LR 552 NS (0.9%) 1000 1000 Oral 0 200 0 0 Output: NG Tube Drainage Amount 100 Urine 150 600 500 Simpson 275 Emesis 100 30 Other: Estimated Void Large Medium # Bowel Movements 0 0 0 # Voids 1 1 0 PEX: Comfortable--awake and alert Lungs are clear with decreased breath sounds at bases Cor is RRR and rapid Abd is soft and non-distended; there are no bowel sounds; Dressing is intact. Ext without edema Laboratory Results - last 24 hr 01/21/17 01/21/17 01/21/17 19:09 19:09 19:09 WBC 6.9 RBC 4.60 Hgb 14.1 Hct 41 MCV 89 MCH 31 MCHC 34 RDW 13 Plt Count 179 MPV 11 H Neut % (Auto) 74.9 Lymph % (Auto) 8.2 L Rhea % (Auto) 16.6 H Eos % (Auto) 0 Baso % (Auto) 0.3 Absolute Neuts (auto) 5.1 Absolute Lymphs (auto) 0.6 L Absolute Monos (auto) 1.1 H Absolute Eos (auto) 0 Absolute Basos (auto) 0 Absolute Nucleated RBC 0 Nucleated RBC % 0 INR (Anticoag Therapy) APTT Sodium 134 Potassium 4.1 Chloride 101 Carbon Dioxide 26 Anion Gap 7 BUN 27 H Creatinine 0.87 Est GFR ( Amer) 101.2 Est GFR (Non-Af Amer) 78.7 BUN/Creatinine Ratio 31.0 H Glucose 148 H Lactic Acid 1.2 Calcium 8.3 L Phosphorus Magnesium 1101/22/17 01/22/17 06:38 06:38 06:38 WBC 6.8 RBC 4.05 Hgb 12.5 Hct 36 MCV 90 MCH 31 MCHC 35 RDW 13 Plt Count 156 MPV 11 H Neut % (Auto) 85.3 H Lymph % (Auto) 7.0 L Rhea % (Auto) 7.6 Eos % (Auto) 0 Baso % (Auto) 0.1 Absolute Neuts (auto) 5.8 Absolute Lymphs (auto) 0.5 L Absolute Monos (auto) 0.5 Absolute Eos (auto) 0 Absolute Basos (auto) 0 Absolute Nucleated RBC 0 Nucleated RBC % 0 INR (Anticoag Therapy) 1.72 H APTT 32.7 Sodium 134 Potassium 4.2 Chloride 104 Carbon Dioxide 28 Anion Gap 2 BUN 16 Creatinine 0.73 Est GFR ( Amer) 123.9 Est GFR (Non-Af Amer) 96.4 BUN/Creatinine Ratio 21.9 H Glucose 141 H Lactic Acid Calcium 7.5 L Phosphorus 1.6 L Magnesium 1.3 L Assessment: POD# 1 s/p open right colectomy for SBO with ischemic bowel Tachycardia Elevated INR Plan: Continue NGT/NPO/IVF [employer] TECHNICIAN Sub q heparin and H2 nicole. Increase activity, pul toilet. Follow increased HR-not yet 12 hours post-op and suspect SIRS--H/H stable, good urine output, Cr is normal. Elevated INR-as above--will follow Replete phos and magnesium Recheck labs in AM Operative findings discussed with patient this morning and her questions were answered.
[2017-01-22] MEDS: D5NS 0.9% 1000 ML BAG* 1,000 ML IV SCH ×2 (12:35→20:35)
[2017-01-22] MEDS: Piperacillin/Tazobac ADVAN(*) 3.375 GM in NS 0.9% 100 ML* 100 ML IVPB SCH ×2 (13:21→21:06)
--- NOTE | 2017-01-22 22:00 | OP ---
CC: [facility] OPERATIVE REPORT: DATE OF OPERATION: 01/21/17 DATE OF : [birth year] SURGEON: Yasir Greene MD JOB HONER: ELIZABETH Sherwood ANESTHESIOLOGIST: Regan Lowry MD ANESTHESIA: General anesthesia. PRE-OP DIAGNOSIS: Small bowel obstruction. POST-OP DIAGNOSIS: Strangulated internal hernia with necrotic small bowel. OPERATIVE PROCEDURE: Diagnostic laparoscopy, laparotomy, and right hemicolectomy with resection of s trangulated small bowel. INDICATIONS: Ms. Xavier is a 27-year-old female, who was admitted on the hospitalist service with a d iagnosis of small bowel obstruction. She was treated expectantly and was followed with x-rays and la bs and surgery was consulted. I was contacted today to evaluate Ms. Xavier for surgical intervention that was recommended by the surgical team. I reviewed her chart including her labs and examined her in mid day on 01/21/17. I agreed with the recommendation for surgical intervention with the diagnosi s of small bowel obstruction as working diagnosis. I described the patient the risks, benefits, and alternatives to a laparoscopy, lysis of adhesions. We discussed the possibility of a laparotomy and bowel resection. We did not necessarily discuss the thoughts of watchful waiting. The patient was an ticipating surgical intervention by the time I saw her and wished to proceed. I spoke of the possibl e complications which included, not limited to, bleeding, infection, prolonged hospitalization, need for additional surgeries, possibility of bowel resection, anastomosis, and possibility of postoperati ve leakage. The patient agreed and signed consent. FLUIDS: 5000 L of lactated Ringer's. ESTIMATED BLOOD LOSS: 150 cc. DRAINS: Simpson catheter only with 250 cc out. SPECIMEN: Small bowel with right colon. COUNT: Lap, pad count and instrument count correct at the end of the procedure. DESCRIPTION OF PROCEDURE: She was marked and brought to the operating room, and placed on the operat ing table in the supine position. Preoperative antibiotics were given. Sequential devices were place d on bilateral lower extremities. General anesthesia was induced. The patient's abdomen was prepped and draped in a standard surgical fashion. A time-out was performed. An infraumbilical incision was made. This was deepened through the anterior fascia. This was elevat ed and incised. Posterior cutdown was performed until we entered into the abdomen. Copious bloody a scites was encountered. This was suctioned off and almost reached approximately a liter. We were ab le to place a 12- mm trocar in. The abdomen was minimally insufflated and the camera was inserted. T he view was minimal, but it was obvious there were some necrotic appearing loops of small bowel in th e pelvis. At this point, we removed the camera and converted to laparotomy. The incision was extend ed inferiorly and also around the umbilicus. We deepened down through all layers of the abdominal wal l. Entry into the abdomen led to more suction of bloody ascites. Small bowel was slowly attempted t o be eviscerated. It did require twisting to put the violaceous and necrotic portions of the small b owel towards the right lower quadrant and this allowed us to bring this out slowly. It was apparent that the good portion of the small bowel would require resection and this extended right up to the il eocecal valve. A small staple line was appreciated at the base of the cecum. Cecum was otherwise in tact. There were no significant adhesions in the right lower quadrant or in the pelvis for that matte r. Uterus and ovaries appeared to be within normal limits. The small bowel appeared necrotic at the distal ileum right up to a violaceous area at the ileocecal valve. This violaceous and red portion of the intestine was also proximally. We placed this back in to the abdomen to allow for better blood flow and then addressed the cecum. The white line of Toldt was taken with electrocautery and with blunt dissection we were able to rotat e the cecum medially. We extended this up to the hepatic flexure without fully taking this down at t hat point. Next, attention was turned towards the omentum. A plane was made at the omental attachments to the t ransverse colon. We were able to gently sweep the transverse colon inferiorly. The duodenum was diego ntified and protected throughout and we were able to fully take down the hepatic flexure. Once the colon was taken down at this site, we again eviscerated the small bowel, it appeared somewha t more viable at the portions had shown some significant injection earlier, but it was apparent we wo uld have to take approximately 2 feet of the small intestine. We extended our incision of the perito neum overlying the mesentery of the small bowel to the area where we would remove. A point was chosen on the transverse colon at the area of good blood supply. A window was made at th is site. The LigaSure device was used to take some of the transverse mesocolon down. Similarly, we chose a point at the small bowel. This was edematous but apparently appeared viable. We made a window at this site and again did the LigaSure across the vessels of the small bowel stayin g close to the small bowel and extending this towards the cecum. The right colonic vessels were take n with 2-0 Polysorb suture stick tie and LigaSure device as well. Once we had the transverse colon and the viable small bowel in apposition to one another, the bowel w as clamped and enterotomy was made. Colotomy was similarly made with the cautery and we placed an 80 -mm ALEXANDER stapling device through this to create the anastomosis. Next, a TA-90 blue load staple was utilized to transect the bowel and close the common defect. This portion of the bowel was then passed off as specimen. Review of the staple line showed minimal bleed ing. This was controlled with 3-0 silk sutures. A tail end of the colon showed some tapering up tow ards the mesentery. We ended up taking this down by utilizing a 60-mm TA blue load stapler to trim th is off. Additional 2-0 silk sutures were used to dunk the corners and we placed a 3-0 silk suture at the crot ch of the staple line. Next, the mesenteric defect which was large was reapproximated with a running 2-0 Polysorb suture venita cing starting out laterally and also performing this medially within the leaflets of mesentery. The bowel was then dropped back into the abdomen. We then copiously irrigated all quadrants especi ally at the right paracolic gutter. We used approximately 6 L of warm saline and suctioned this off and the effluent was especially clear. Hemostasis was excellent. We then brought out the small bowel again, looked at the anastomosis, appeared viable without any clyde dence of ischemia. It was edematous and there was no peristalsis of the small bowel during any of ou r work. It was again allowed to drop back into the abdomen. NG tube position was positioned. Liver was palpated and there was no evidence of lesions. Again, the pelvis showed no abnormalities includ ing the sigmoid colon, which was decompressed and within normal limits. Next, the omentum we had was then draped along the midline incision. This was then protected with fi sh device. The midline incision was reapproximated with #1 Vicryl sutures starting inferiorly with f igure-of-8 sutures and also superiorly. The wound then was irrigated at the subcutaneous level and t he skin was reapproximated with skin reena followed by sterile dressing. The patient tolerated the procedure well, was woken up in the OR and transferred to the PACU in stable condition. Lap pad cou nt and instrument count correct at the end of the procedure. [id number]/[facility] #: [id number]
[2017-01-23] MEDS: D5NS 0.9% 1000 ML BAG* 1,000 ML IV SCH ×3 (04:36→21:26)
[2017-01-23 04:56] LABS: Hematocrit 28 % (35-47); Hemoglobin 9.6 g/dl (12.0-16.0); Mean Corpuscular HGB Conc 34 g/dl (31-36); Mean Corpuscular Hemoglobin 31 pg (27-31); Mean Corpuscular Volume 90 fL (80-97); Mean Platelet Volume 11 um3 (7.4-10.4); Red Blood Count 3.13 10^6/ul (4.0-5.4); Red Cell Distribution Width 13 % (10.5-15); White Blood Count 5.9 10^3/ul (3.5-10.8)
[2017-01-23 05:13] LABS: ALT 7 U/L (7-52); AST 17 U/L (13-39); Albumin 2.2 g/dL (3.2-5.2); Alkaline Phosphatase 25 U/L (34-104); Anion Gap 1 mmol/L (2-11); BUN/Creatinine Ratio 16.4 (8-20); Blood Urea Nitrogen 11 mg/dL (6-24); CO2 Carbon Dioxide 27 mmol/L (22-32); Calcium 7.3 mg/dL (8.6-10.3); Chloride 106 mmol/L (101-111); EGFR African American 136.8 (>60); EGFR Non-African American 106.4 (>60); Glucose 123 mg/dL (70-100); Magnesium 1.8 mg/dL (1.9-2.7); Potassium 3.7 mmol/L (3.5-5.0); Sodium 134 mmol/L (133-145); Total Protein 4.2 g/dL (6.4-8.9)
[2017-01-23 05:23] LABS: Phosphorus < 1.0 mg/dL (2.5-5.0)
[2017-01-23] MEDS: Piperacillin/Tazobac ADVAN(*) 3.375 GM in NS 0.9% 100 ML* 100 ML IVPB SCH ×3 (05:46→21:20)
[2017-01-23] MEDS: Heparin VIAL(*) 5000 UNITS/ML VIAL (FIVE THOUSAND) SUBCUT SCH ×3 (05:47→21:21)
[2017-01-23] MEDS ORDERED: Potassium Phosphate IV* 30 MMOLE in NS 0.9% 250 ML* 250 ML IVPB ONE (06:30)
--- NOTE | 2017-01-23 08:13 | PN ---
Progress Note - Progress Note Date of Service: 01/23/17 SOAP: Subjective: Feels a little fatigued this morning Has already been up and walking in the halls Pain controlled with EXTRACTING MACHINE OPERATOR Objective: Temp Pulse Resp BP Pulse Ox 98.0 F 110 16 129/72 94 01/23/17 07:20 01/23/17 07:43 01/23/17 07:20 01/23/17 07:20 01/23/17 07:20 Intake & Output 01/21/17 01/22/17 01/23/17 01/24/17 06:59 06:59 06:59 06:59 Intake Total 3950 1884 5061 Output Total 806 951 9981 Balance 3320 1009 2586 Intake: IV Fluids 3750 332 2834 D5NS 1989 LR 3750 317 561 NS (0.9%) 15 283 IVPB 1552 1000 LR 552 NS (0.9%) 1000 1000 Medicated IV 697 Magnesium 110 Potassium Phosphate 260 Zosyn 327 Oral 200 0 530 Output: NG Tube Drainage Amount 100 800 Urine 600 500 Ogden 275 1675 Emesis 30 Other: Estimated Void Medium # Bowel Movements 0 0 Other Amount Description The 230ml PO intake was ice chips # Voids 1 0 PEX: Comfortable in chair-awake and alert Lungs are clear Cor RRR Abdo is soft and only slightly distended. Incision is clean and dry. Bowel sounds are not present. Ext without edema Laboratory Results - last 24 hr 01/23/17 01/23/17 04:34 04:34 WBC 5.9 RBC 3.13 L Hgb 9.6 L Hct 28 L MCV 90 MCH 31 MCHC 34 RDW 13 Plt Count 125 L MPV 11 H Neut % (Auto) 71.2 Lymph % (Auto) 15.8 L Cannon % (Auto) 10.0 H Eos % (Auto) 2.6 Baso % (Auto) 0.4 Absolute Neuts (auto) 4.2 Absolute Lymphs (auto) 0.9 L Absolute Monos (auto) 0.6 Absolute Eos (auto) 0.2 Absolute Basos (auto) 0 Absolute Nucleated RBC 0 Nucleated RBC % 0 Sodium 134 Potassium 3.7 Chloride 106 Carbon Dioxide 27 Anion Gap 1 L BUN 11 Creatinine 0.67 Est GFR ( Amer) 136.8 Est GFR (Non-Af Amer) 106.4 BUN/Creatinine Ratio 16.4 Glucose 123 H Calcium 7.3 L Phosphorus < 1.0 L* Magnesium 1.8 L Total Bilirubin 0.40 AST 17 ALT 7 Alkaline Phosphatase 25 L Total Protein 4.2 L Albumin 2.2 L Globulin 2.0 Albumin/Globulin Ratio 1.1 Assessment: POD# 2 s/p ex lap open right colectomy for SBO Post-op ileus Low Phosphorous Plan: Replete phos D/C ogden and NGT Continue with ice chips H2 nicole and subq heparin IV Zosyn Increase activity and pulmonary toilet. All discussed with patient
[2017-01-23] MEDS ORDERED: Magnesium Sulfate 1 GM IV* 1 GM/100 ML BAG IV ONE (09:30)
--- NOTE | 2017-01-23 09:30 | PN ---
Subjective Date of Service: 01/23/17 Interval History: Pt feels well. abd pain is controlled with STENCIL PRINTER, NG was discontinued and she is "burping", but did not pass flatus. Family History: Unchanged from Admission Social History: Unchanged from Admission Past Medical History: Unchanged from Admission Objective Active Medications: Acetaminophen (Tylenol Supp*) 650 mg FL Q6H PRN PRN Reason: FEVER/PAIN Last Admin: 01/22/17 09:22 Dose: 650 mg Famotidine (Pepcid Iv*) 20 mg IV BID [facility] Last Admin: 01/22/17 21:05 Dose: 20 mg Heparin Sodium (Porcine) (Heparin Vial(*)) 5,000 units SUBCUT Q8HR [facility] Last Admin: 01/23/17 05:47 Dose: 5,000 units Hydromorphone HCl (Dilaudid Bag Inspector*) 20 mg in 20 mls @ 0 mls/hr STENCIL PRINTER .change Q24H [facility]; Per Protocol PRN Reason: Protocol Sodium Chloride (Ns 0.9% 500 Ml Bag*) 500 mls @ 1,000 mls/hr IV ONCE PRN PRN Reason: SEE COMMENTS Piperacillin Sod/Tazobactam (Sod 3.375 gm/ Sodium Chloride) 100 mls @ 25 mls/ hr IVPB Q8H [facility] Last Admin: 01/23/17 05:46 Dose: 25 mls/hr Dextrose/Sodium Chloride (D5ns 0.9% 1000 Ml Bag*) 1,000 mls @ 125 mls/hr IV PER RATE [facility] Last Admin: 01/23/17 04:36 Dose: 125 mls/hr Potassium Phosphate 30 mmole/ (Sodium Chloride) 260 mls @ 65 mls/hr IVPB ONCE ONE Stop: 01/23/17 10:29 Last Admin: 01/23/17 06:44 Dose: 21 mls/hr Magnesium Sulfate/Dextrose (Magnesium Sulfate 1 Gm Iv*) 1 gm in 100 mls @ 200 mls/hr IV ONCE ONE Stop: 01/23/17 09:59 Ketorolac Tromethamine (Toradol Inj*) 15 mg IV Q6H PRN PRN Reason: PAIN Last Admin: 01/21/17 07:52 Dose: 15 mg Lorazepam (Ativan Inj*) 0.5 mg IV BEDTIME PRN PRN Reason: SLEEP Last Admin: 01/20/17 22:20 Dose: 0.5 mg Ondansetron HCl (Zofran Inj*) 4 mg IV Q6H PRN PRN Reason: NAUSEA Last Admin: 01/21/17 13:18 Dose: 4 mg Prochlorperazine Edisylate (Compazine Inj*) 10 mg IV Q6H PRN PRN Reason: NAUSEA Last Admin: 01/20/17 22:19 Dose: 10 unit Vital Signs 01/22/17 01/22/17 01/22/17 11:00 11:29 13:00 Temperature 98.2 F Pulse Rate 100 Respiratory 18 18 18 Rate Blood Pressure 131/68 (mmHg) O2 Sat by Pulse 98 96 94 Oximetry 01/22/17 01/22/17 01/22/17 15:00 15:48 17:00 Temperature 100.4 F Pulse Rate 113 Respiratory 18 16 18 Rate Blood Pressure 126/65 (mmHg) O2 Sat by Pulse 94 96 98 Oximetry 01/22/17 01/22/17 01/22/17 18:51 19:27 21:00 Temperature 99.3 F Pulse Rate 108 Respiratory 18 14 16 Rate Blood Pressure 126/67 (mmHg) O2 Sat by Pulse 98 97 Oximetry 01/22/17 01/22/17 01/22/17 21:24 23:28 23:37 Temperature 99.4 F Pulse Rate 117 120 Respiratory 16 16 16 Rate Blood Pressure 108/57 (mmHg) O2 Sat by Pulse 96 94 93 Oximetry 01/23/17 01/23/17 01/23/17 01:00 03:00 03:52 Temperature 99.1 F Pulse Rate 120 Respiratory 16 16 16 Rate Blood Pressure 129/72 (mmHg) O2 Sat by Pulse 93 97 96 Oximetry 01/23/17 01/23/17 01/23/17 05:15 06:30 07:20 Temperature 98.0 F Pulse Rate 112 Respiratory 16 16 16 Rate Blood Pressure 129/72 (mmHg) O2 Sat by Pulse 94 96 94 Oximetry 01/23/17 07:43 Temperature Pulse Rate 110 Respiratory Rate Blood Pressure (mmHg) O2 Sat by Pulse Oximetry Oxygen Devices in Use Now: None, OxyMask Appearance: 27 yo f in nAD, AAOx3 Eyes: No Scleral Icterus, PERRLA Ears/Nose/Mouth/Throat: NL Teeth, Lips, Gums, Mucous Membranes Moist Neck: NL Appearance and Movements; NL JVP, Trachea Midline Respiratory: Symmetrical Chest Expansion and Respiratory Effort, Clear to Auscultation Cardiovascular: NL Sounds; No Murmurs; No JVD, RRR Abdominal: - - distended, tender eli-incision, no rebound, no guarding, BS hypoactive Lymphatic: No Cervical Adenopathy Extremities: No Edema, No Clubbing, Cyanosis Skin: No Nodules or Sclerosis, - - midline abd wound not examined Neurological: Alert and Oriented x 3, NL Muscle Strength and Tone Result Diagrams: 01/23/17 04:34 01/23/17 04:34 Additional Lab and Data: . Microbiology and Other Data: Microbiology 01/21/17 19:49 Aerobic Blood Culture - Preliminary Blood Venous No Growth Day 1 Anaerobic Blood Culture - Preliminary No Growth Day 1 01/21/17 20:02 Aerobic Blood Culture - Preliminary Blood Venous No Growth Day 1 Anaerobic Blood Culture - Preliminary No Growth Day 1 Assess/Plan/Problems-Billing Ms. Xavier is a 27 y/o F w/ hx only of appendectomy who presented to the ER w/ the c/o of abdominal pain found to have a small bowel obstruction. - Patient Problems (1) Small bowel obstruction due to adhesions Comment: -s/p ex lap on 01/21/17-found to have necrotic bowel s/p resection of 2 ft of R colon. Abd closed. surgery following. Due to extensive bowel necrosis and SIRS periop, will cont Zosyn per surgery. D/w Dr. Cotter -cont NPO except ice chips - Dilaudid STENCIL PRINTER for pain control (2) DVT prophylaxis Comment: HSQ (3) Hypomagnesemia Comment: and hypophosphatemia replacing IV (4) Tachycardia Comment: due to post op SIRS and electrolyte abn. Cont telem EKG and Echo to eval EF due to persistent tachycardia-ordered. (5) Postoperative anemia Comment: acute, EBL 150 ml hemodiution also contributing Status and Disposition: Inpatient
[2017-01-23 10:02] LABS: C Reactive Protein 305.11 mg/L (< 5.00)
[2017-01-23] MEDS: Famotidine IV* 10 MG/ML 2 ML (20 mg) IV SCH ×2 (10:18→21:14)
[2017-01-23 12:36] LABS: BUN/Creatinine Ratio 11.7 (8-20); Blood Urea Nitrogen 7 mg/dL (6-24); CO2 Carbon Dioxide 27 mmol/L (22-32); Calcium 7.3 mg/dL (8.6-10.3); Chloride 104 mmol/L (101-111); EGFR African American 155.4 (>60); EGFR Non-African American 120.8 (>60); Glucose 124 mg/dL (70-100); Phosphorus 1.3 mg/dL (2.5-5.0); Potassium 3.6 mmol/L (3.5-5.0); Sodium 131 mmol/L (133-145)
--- NOTE | 2017-01-23 12:42 | ECHO ---
Patient: SYLVESTER WALLACE [facility] Rec#: [id number] : 1990 Date: 01/23/2017 Age: 27y Height: 172.72 cm / 68.0 in Weight: 61.23 kg / 135.0 lbs Sex: F BSA: 1.73 Room#: 332 Admit Date#: 01/19/2017 Type: Inpatient Referring: Jazmin Villalba MD Reading: Sacha Magana MD Liner Roll Changer: Darlyn Sauceda [facility] Transthoracic Echocardiogram Indication: Tachycardia BP: 129/72 HR: 109 Rhythm: Tachycardia Findings History: S/P expl.lap with removal of necrotic bowel, nonsmoker,no PMHx. Technical Comments: The study quality is good. Completed at 1207. Left Ventricle: The left ventricular chamber size is normal. Global left ventricular wall motion and contractility are within normal limits. There is normal left ventricular systolic function. The estimated ejection fraction is 55-60%. Normal left ventricular diastolic filling is observed. Left Atrium: The left atrium is normal in size. Right Ventricle: The right ventricular cavity size is normal. The right ventricular global systolic function is normal. Right Atrium: The right atrium is mildly dilated. Aortic Valve: The aortic valve structure is not well visualized. There is no evidence of aortic regurgitation. There is no evidence of aortic stenosis. Mitral Valve: The mitral valve leaflets appear normal. There is no evidence of mitral regurgitation. Tricuspid Valve: The tricuspid valve leaflets are normal. There is trace tricuspid regurgitation. The right ventricular systolic pressure is estimated at 38 mmHg. There is evidence of mild pulmonary hypertension. Pulmonic Valve: The pulmonic valve appears normal. There is no evidence of pulmonic regurgitation. There is no pulmonic stenosis. Pericardium: There is no significant pericardial effusion. Aorta: There is no dilatation of the ascending aorta. There is no dilatation of the aortic arch. There is no dilation of the aortic root. Pulmonary Artery: The main pulmonary artery appears normal. Venous: The venous system is not well visualized. Due to recent abdominal surgery. Conclusions There is normal left ventricular systolic function. The estimated ejection fraction is 55-60%. Global left ventricular wall motion and contractility are within normal limits. The left ventricular chamber size is normal. The right atrium is mildly dilated. Functionally benign heart valves. There is evidence of mild pulmonary hypertension. There is no prior echocardiogram available to compare with at this time. Measurements Name Value Normal Range RVIDd (AP) 2D 3 cm (0.9 - 2.6) RVDdMajor (2D) 3.8 cm (2.2 - 4.4) RAd ISD 4CH 5.2 cm (3.4 - 4.9) RA (A4C)W 5.4 cm (2.9 - 4.6) IVSd (2D) 1.2 cm (0.6 - 1) LVPWd (2D) 1 cm (0.6 - 1) LVIDd (2D) 4 cm (3.6 - 5.4) LVIDs (2D) 3.1 cm - LV FS (2D) 22 % (25 - 45) Aortic Annulus 1.7 cm (1.4 - 2.6) Ao root diameter (2D) 2.4 cm (2.1 - 3.5) Ascending Ao 2.8 cm (2.1 - 3.4) Aortic arch 2.5 cm (1.8 - 3.4) Descending Ao 1.1 cm - LA dimension (AP) 2D 2.6 cm (2.3 - 3.8) LAd ISD 4CH 4.2 cm (2.9 - 5.3) LA ISD 4CH W 4.4 cm (2.5 - 4.5) Name Value Normal Range LA ESV SP 4CH (A/L) 49 ml - LA ESV SP 2CH (A/L) 34 ml - LA ESV BP (A/L) 43 ml - LA ESV BP (A/L) index 24.95 ml/m2 - LA ESV SP 4CH (MOD) 43 ml - LA ESV SP 2CH (MOD) 29 ml - Name Value Normal Range MV E-wave Vmax 1 m/sec - MV deceleration time 121 msec - MV A-wave Vmax 0.7 m/sec - MV E:A ratio 1.36 ratio - LV septal e' Vmax 0.1 m/sec - LV lateral e' Vmax 0.16 m/sec - LV E:e' septal ratio 10 ratio - LV E:e' lateral ratio 6.25 ratio - Name Value Normal Range AV Vmax 1.5 m/sec - AV VTI 27.4 cm - AV peak gradient 9.08 mmHg - AV mean gradient 5.18 mmHg - LVOT Vmax 1.1 m/sec - LVOT VTI 20.9 cm - LVOT peak gradient 5.23 mmHg - LVOT mean gradient 3 mmHg - Name Value Normal Range TR Vmax 3 m/sec - TR peak gradient 34 mmHg - RVSP 38 mmHg - Name Value Normal Range PV Vmax 0.9 m/sec - PV peak gradient 3.39 mmHg -
[2017-01-24] MEDS: Piperacillin/Tazobac ADVAN(*) 3.375 GM in NS 0.9% 100 ML* 100 ML IVPB SCH ×3 (05:03→20:29)
[2017-01-24] MEDS: D5NS 0.9% 1000 ML BAG* 1,000 ML IV SCH ×2 (05:04→16:08)
[2017-01-24] MEDS: Heparin VIAL(*) 5000 UNITS/ML VIAL (FIVE THOUSAND) SUBCUT SCH ×3 (05:05→21:53)
[2017-01-24] MEDS ORDERED: Potassium Phosphate IV* 15 MMOLE in NS 0.9% 250 ML* 250 ML IVPB ONE (07:44)
--- NOTE | 2017-01-24 08:21 | PN ---
Subjective Date of Service: 01/24/17 Interval History: Pt feels well. Urinates frequently. No flatus or BM. abd pain is improving Family History: Unchanged from Admission Social History: Unchanged from Admission Past Medical History: Unchanged from Admission Objective Active Medications: Acetaminophen (Tylenol Supp*) 650 mg ND Q6H PRN PRN Reason: FEVER/PAIN Last Admin: 01/22/17 09:22 Dose: 650 mg Famotidine (Pepcid Iv*) 20 mg IV BID [facility] Last Admin: 01/23/17 21:14 Dose: 20 mg Heparin Sodium (Porcine) (Heparin Vial(*)) 5,000 units SUBCUT Q8HR [facility] Last Admin: 01/24/17 05:05 Dose: 5,000 units Hydromorphone HCl (Dilaudid V Belt Finisher*) 20 mg in 20 mls @ 0 mls/hr SCRAP CRUSHER .change Q24H [facility]; Per Protocol PRN Reason: Protocol Last Admin: 01/23/17 10:24 Dose: 1 mls/hr Sodium Chloride (Ns 0.9% 500 Ml Bag*) 500 mls @ 1,000 mls/hr IV ONCE PRN PRN Reason: SEE COMMENTS Piperacillin Sod/Tazobactam (Sod 3.375 gm/ Sodium Chloride) 100 mls @ 25 mls/ hr IVPB Q8H [facility] Last Admin: 01/24/17 05:03 Dose: 25 mls/hr Dextrose/Sodium Chloride (D5ns 0.9% 1000 Ml Bag*) 1,000 mls @ 125 mls/hr IV PER RATE [facility] Last Admin: 01/24/17 05:04 Dose: 125 mls/hr Potassium Phosphate 15 mmole/ (Sodium Chloride) 255 mls @ 42 mls/hr IVPB ONCE ONE Stop: 01/24/17 13:48 Ketorolac Tromethamine (Toradol Inj*) 15 mg IV Q6H PRN PRN Reason: PAIN Last Admin: 01/21/17 07:52 Dose: 15 mg Lorazepam (Ativan Inj*) 0.5 mg IV BEDTIME PRN PRN Reason: SLEEP Last Admin: 01/20/17 22:20 Dose: 0.5 mg Ondansetron HCl (Zofran Inj*) 4 mg IV Q6H PRN PRN Reason: NAUSEA Last Admin: 01/21/17 13:18 Dose: 4 mg Prochlorperazine Edisylate (Compazine Inj*) 10 mg IV Q6H PRN PRN Reason: NAUSEA Last Admin: 01/20/17 22:19 Dose: 10 unit Vital Signs 01/23/17 01/23/17 01/23/17 09:00 10:24 10:25 Temperature Pulse Rate Respiratory 18 16 16 Rate Blood Pressure (mmHg) O2 Sat by Pulse 92 Oximetry 01/23/17 01/23/17 01/23/17 11:00 11:27 11:44 Temperature 98.3 F Pulse Rate 108 Respiratory 18 18 16 Rate Blood Pressure 118/69 (mmHg) O2 Sat by Pulse 94 95 Oximetry 01/23/17 01/23/17 01/23/17 13:00 15:00 15:29 Temperature 99.6 F Pulse Rate 100 Respiratory 18 16 16 Rate Blood Pressure 125/77 (mmHg) O2 Sat by Pulse 97 97 94 Oximetry 01/23/17 01/23/17 01/23/17 17:00 19:00 19:35 Temperature Pulse Rate Respiratory 18 16 16 Rate Blood Pressure (mmHg) O2 Sat by Pulse 94 93 Oximetry 01/23/17 01/23/17 01/23/17 19:37 21:00 23:00 Temperature 98.1 F Pulse Rate 96 Respiratory 16 16 16 Rate Blood Pressure 121/72 (mmHg) O2 Sat by Pulse 95 94 94 Oximetry 01/23/17 01/24/17 01/24/17 23:53 01:00 03:00 Temperature 99.2 F Pulse Rate 101 Respiratory 16 16 16 Rate Blood Pressure 134/70 (mmHg) O2 Sat by Pulse 100 96 96 Oximetry 01/24/17 01/24/17 03:58 05:00 Temperature 98.5 F Pulse Rate 95 Respiratory 16 16 Rate Blood Pressure 130/73 (mmHg) O2 Sat by Pulse 100 97 Oximetry Oxygen Devices in Use Now: None, OxyMask Appearance: 27 yo F in nAD, aAOx3 Eyes: No Scleral Icterus, PERRLA Ears/Nose/Mouth/Throat: NL Teeth, Lips, Gums, Mucous Membranes Moist Neck: NL Appearance and Movements; NL JVP, Trachea Midline Respiratory: Symmetrical Chest Expansion and Respiratory Effort, Clear to Auscultation Cardiovascular: NL Sounds; No Murmurs; No JVD, RRR Abdominal: - - soft, mild tenderness on b/l sides of midline incision,no rebound , no guarding, BS hypoactive Lymphatic: No Cervical Adenopathy Extremities: No Clubbing, Cyanosis, - - mild ankle edema b/l Skin: No Nodules or Sclerosis Neurological: Alert and Oriented x 3, NL Muscle Strength and Tone Result Diagrams: 01/23/17 04:34 01/23/17 12:06 Additional Lab and Data: . Microbiology and Other Data: Microbiology 01/21/17 19:49 Aerobic Blood Culture - Preliminary Blood Venous No Growth Day 1 Anaerobic Blood Culture - Preliminary No Growth Day 1 01/21/17 20:02 Aerobic Blood Culture - Preliminary Blood Venous No Growth Day 1 Anaerobic Blood Culture - Preliminary No Growth Day 1 Assess/Plan/Problems-Billing Ms. Xavier is a 27 y/o F w/ hx only of appendectomy who presented to the ER w/ the c/o of abdominal pain found to have a small bowel obstruction. - Patient Problems (1) Small bowel obstruction due to adhesions Comment: -s/p ex lap on 01/21/17-found to have necrotic bowel s/p resection of 2 ft of R colon. Abd closed. surgery following. Due to extensive bowel necrosis and SIRS periop- cont Zosyn per surgery. -cont NPO except ice chips - Dilaudid SCRAP CRUSHER for pain control (2) DVT prophylaxis Comment: HSQ (3) Hypomagnesemia Comment: and hypophosphatemia replacing IV (4) Tachycardia Comment: due to post op SIRS and electrolyte abn. Cont telem, resolving Echo shows EF 60% and mild pulm HTN. will lower IVF rate to 80 ml/hr. (5) Postoperative anemia Comment: acute, EBL 150 ml hemodiution also contributing Status and Disposition: Inpatient
[2017-01-24] MEDS: Famotidine IV* 10 MG/ML 2 ML (20 mg) IV SCH ×2 (08:43→20:29)
[2017-01-24] MEDS ORDERED: Ketorolac INJ* 30 MG/ML 1 ML VIAL IV PUSH PRN (09:04)
--- NOTE | 2017-01-24 09:04 | PN ---
Progress Note - Progress Note Date of Service: 01/24/17 SOAP: Subjective: Pt seen and examined. Feeling better today; difficult day yesterday. No appetite. Positive burping. No flatus. Objective: Temp Pulse Resp BP Pulse Ox 98.5 F 95 16 130/73 97 01/24/17 03:58 01/24/17 03:58 01/24/17 05:00 01/24/17 03:58 01/24/17 05:00 O2 sat low 90s on RA. UO great lungs clear b/l abdo: soft, distended. Tender on deep palpation. high pitched bowel sounds on L, hypoactive on R dressing removed, no redness Ext wnl labs P Assessment: POD 2 ex lap bowel resection, low Phos. ileus Plan: pain control labs in am sips only continue IVF
[2017-01-24 09:09] LABS: Calcium 7.6 mg/dL (8.6-10.3); EGFR African American 171.8 (>60); EGFR Non-African American 133.6 (>60); Magnesium 1.7 mg/dL (1.9-2.7); Potassium 3.2 mmol/L (3.5-5.0)
[2017-01-24] MEDS ORDERED: Magnesium Sulfate 2 GM IV* 2 GM/50 ML BAG IVPB ONE (10:04)
[2017-01-24 10:08] LABS: BUN/Creatinine Ratio 7.3 (8-20)
[2017-01-24 11:41] LABS: Phosphorus 1.9 mg/dL (2.5-5.0)
[2017-01-24] MEDS: KCL 20 MEQ/100 ML IVPREMIX* 20 MEQ/100 ML BAG IV SCH ×2 (11:58→16:05)
[2017-01-24] MEDS: Ketorolac INJ* 30 MG/ML 1 ML VIAL IV PUSH SCH ×2 (18:17→23:13)
[2017-01-25] MEDS: D5NS 0.9% 1000 ML BAG* 1,000 ML IV SCH ×2 (04:32→17:06)
[2017-01-25] MEDS: Piperacillin/Tazobac ADVAN(*) 3.375 GM in NS 0.9% 100 ML* 100 ML IVPB SCH ×3 (04:35→20:51)
[2017-01-25] MEDS: Ketorolac INJ* 30 MG/ML 1 ML VIAL IV PUSH SCH ×4 (04:35→23:28)
[2017-01-25 04:41] LABS: Hematocrit 31 % (35-47); Hemoglobin 10.5 g/dl (12.0-16.0); Mean Corpuscular HGB Conc 34 g/dl (31-36); Mean Corpuscular Hemoglobin 31 pg (27-31); Mean Corpuscular Volume 90 fL (80-97); Mean Platelet Volume 11 um3 (7.4-10.4); Red Blood Count 3.44 10^6/ul (4.0-5.4); Red Cell Distribution Width 13 % (10.5-15); White Blood Count 6.7 10^3/ul (3.5-10.8)
[2017-01-25 05:01] LABS: Albumin 2.6 g/dL (3.2-5.2); BUN/Creatinine Ratio 5.9 (8-20); EGFR African American 134.5 (>60); EGFR Non-African American 104.6 (>60); Globulin 2.5 g/dL (2-4); Magnesium 1.9 mg/dL (1.9-2.7); Phosphorus 2.5 mg/dL (2.5-5.0); Potassium 3.3 mmol/L (3.5-5.0); Total Bilirubin 0.3 mg/dL (0.2-1.0); Total Protein 5.1 g/dL (6.4-8.9)
[2017-01-25] MEDS: Heparin VIAL(*) 5000 UNITS/ML VIAL (FIVE THOUSAND) SUBCUT SCH ×3 (05:51→23:26)
--- NOTE | 2017-01-25 08:08 | PN ---
Subjective Date of Service: 01/25/17 Interval History: Pt had a liquid BM last nigh. Pain controlled with toradol. Family History: Unchanged from Admission Social History: Unchanged from Admission Past Medical History: Unchanged from Admission Objective Active Medications: Acetaminophen (Tylenol Supp*) 650 mg HI Q6H PRN PRN Reason: FEVER/PAIN Last Admin: 01/22/17 09:22 Dose: 650 mg Famotidine (Pepcid Iv*) 20 mg IV BID [facility] Last Admin: 01/24/17 20:29 Dose: 20 mg Heparin Sodium (Porcine) (Heparin Vial(*)) 5,000 units SUBCUT Q8HR [facility] Last Admin: 01/25/17 05:51 Dose: 5,000 units Hydromorphone HCl (Dilaudid Digital Product [employer]*) 20 mg in 20 mls @ 0 mls/hr [employer] .change Q24H [facility]; Per Protocol PRN Reason: Protocol Last Admin: 01/23/17 10:24 Dose: 1 mls/hr Sodium Chloride (Ns 0.9% 500 Ml Bag*) 500 mls @ 1,000 mls/hr IV ONCE PRN PRN Reason: SEE COMMENTS Piperacillin Sod/Tazobactam (Sod 3.375 gm/ Sodium Chloride) 100 mls @ 25 mls/ hr IVPB Q8H [facility] Last Admin: 01/25/17 04:35 Dose: 25 mls/hr Dextrose/Sodium Chloride (D5ns 0.9% 1000 Ml Bag*) 1,000 mls @ 80 mls/hr IV PER RATE [facility] Last Admin: 01/25/17 04:32 Dose: 80 mls/hr Potassium Chloride (Potassium Chloride 20 Meq/100 Ml Ivpremix*) 20 meq in 100 mls @ 50 mls/hr IV Q2H [facility] Stop: 01/25/17 11:59 Ketorolac Tromethamine (Toradol Inj*) 30 mg IV PUSH Q6H [facility] Stop: 01/27/17 23:59 Last Admin: 01/25/17 04:35 Dose: 30 mg Lorazepam (Ativan Inj*) 0.5 mg IV BEDTIME PRN PRN Reason: SLEEP Last Admin: 01/20/17 22:20 Dose: 0.5 mg Ondansetron HCl (Zofran Inj*) 4 mg IV Q6H PRN PRN Reason: NAUSEA Last Admin: 01/21/17 13:18 Dose: 4 mg Prochlorperazine Edisylate (Compazine Inj*) 10 mg IV Q6H PRN PRN Reason: NAUSEA Last Admin: 01/20/17 22:19 Dose: 10 unit Vital Signs 01/24/17 01/24/17 01/24/17 09:00 11:00 11:28 Temperature 98.3 F Pulse Rate 94 Respiratory 16 16 16 Rate Blood Pressure 120/69 (mmHg) O2 Sat by Pulse 93 92 94 Oximetry 01/24/17 01/24/17 01/24/17 13:00 15:00 15:21 Temperature 98.7 F Pulse Rate 86 Respiratory 16 16 16 Rate Blood Pressure 119/67 (mmHg) O2 Sat by Pulse 96 94 98 Oximetry 01/24/17 01/24/17 01/24/17 17:00 18:35 19:00 Temperature Pulse Rate Respiratory 16 16 16 Rate Blood Pressure (mmHg) O2 Sat by Pulse 97 97 97 Oximetry 01/24/17 01/24/17 01/24/17 19:40 20:29 21:00 Temperature 99.1 F Pulse Rate 80 Respiratory 16 16 17 Rate Blood Pressure 128/72 (mmHg) O2 Sat by Pulse 99 97 Oximetry 01/24/17 01/24/17 01/25/17 23:00 23:05 01:00 Temperature 98.5 F Pulse Rate 84 Respiratory 17 18 18 Rate Blood Pressure 125/71 (mmHg) O2 Sat by Pulse 96 96 97 Oximetry 01/25/17 01/25/17 01/25/17 03:00 05:00 06:58 Temperature Pulse Rate Respiratory 17 15 15 Rate Blood Pressure (mmHg) O2 Sat by Pulse 96 96 96 Oximetry 01/25/17 01/25/17 07:00 07:36 Temperature 97.8 F Pulse Rate 85 Respiratory 16 16 Rate Blood Pressure 119/67 (mmHg) O2 Sat by Pulse 98 94 Oximetry Oxygen Devices in Use Now: None, Nasal Cannula Appearance: 27 yo f in nAD, aAOx3 Eyes: No Scleral Icterus, PERRLA Ears/Nose/Mouth/Throat: NL Teeth, Lips, Gums, Mucous Membranes Moist Neck: NL Appearance and Movements; NL JVP, Trachea Midline Respiratory: Symmetrical Chest Expansion and Respiratory Effort, Clear to Auscultation Cardiovascular: NL Sounds; No Murmurs; No JVD, RRR Abdominal: No Hepatosplenomegaly, - - mild ditention noted, soft, BS +, mild tenderness on b/l sides of midlin incision Lymphatic: No Cervical Adenopathy Extremities: No Edema, No Clubbing, Cyanosis Skin: No Nodules or Sclerosis, - - incision not inspected Neurological: Alert and Oriented x 3, NL Muscle Strength and Tone Result Diagrams: 01/25/17 04:21 01/25/17 04:20 Additional Lab and Data: . Microbiology and Other Data: Microbiology 01/21/17 19:49 Aerobic Blood Culture - Preliminary Blood Venous No Growth Day 1 Anaerobic Blood Culture - Preliminary No Growth Day 1 01/21/17 20:02 Aerobic Blood Culture - Preliminary Blood Venous No Growth Day 1 Anaerobic Blood Culture - Preliminary No Growth Day 1 Assess/Plan/Problems-Billing Ms. Xavier is a 27 y/o F w/ hx only of appendectomy who presented to the ER w/ the c/o of abdominal pain found to have a small bowel obstruction. - Patient Problems (1) Small bowel obstruction due to adhesions Comment: -s/p ex lap on 01/21/17-found to have necrotic bowel s/p resection of 2 ft of R colon. Abd closed. surgery following. Due to extensive bowel necrosis and SIRS periop- cont Zosyn per surgery. -Post op ileus is resolving, had a BM last night, diet to be changed as per surgery (2) DVT prophylaxis Comment: HSQ (3) Hypomagnesemia Comment: resolved (4) Tachycardia Comment: due to post op SIRS and electrolyte abn. resolved Echo shows EF 60% (5) Postoperative anemia Comment: acute, EBL 150 ml hemodiution also contributing Status and Disposition: Inpatient
[2017-01-25] MEDS: KCL 20 MEQ/100 ML IVPREMIX* 20 MEQ/100 ML BAG IV SCH ×2 (08:41→13:17)
[2017-01-25] MEDS: Famotidine IV* 10 MG/ML 2 ML (20 mg) IV SCH ×2 (08:47→20:50)
[2017-01-25] MEDS ORDERED: oxyCODONE/Acetamin 5/325 MG* TAB PO PRN ×2 (11:20→11:21)
--- NOTE | 2017-01-25 11:25 | PN ---
Progress Note - Progress Note Date of Service: 01/25/17 SOAP: Subjective: Patient seen and examined at bedside. Reports feeling much better. Toradol has helped a lot with her pain. Ambulatory, tolerating full liquids. Had 2 loose BMs yesterday. No fever or chills. Objective: Awake and alert, comfortable, eating breakfast. VSS, afebrile Lungs CTA bilat. Heart RRR, no murmurs Abdomen soft, NT, ND. Incision C/D/I. Bowel sounds hypoactive. No guarding or rigidity. Ext. without edema Labs noted, Mg and phosph corrected, Hypokalemia Assessment: Doing very well, s/p diagnostic laparoscopy converted to laparotomy with small bowel resection Plan: Advance diet D/C [employer] Oral analgesics Likely home tomorrow if continues to improve
--- NOTE | 2017-01-25 17:52 | PN ---
Progress Note - Progress Note Date of Service: 01/25/17 SOAP: Subjective: Pt seen and examined. Feeling better. Pos flatus, loose BMs. Some burping, no nausea Objective: af vss uo great, neg I/Os abod: soft/ distended/ incinsional tenderness mild erythema at incision no calf tenderness path P Assessment: POD 4 ex lap, ileocecal resection Plan: liquiid diet abx OOB f/u labs, path
[2017-01-25] MEDS: LORazepam INJ* 2 MG/ML 1 ML VIAL IV PRN (23:37)
[2017-01-26] MEDS: D5NS 0.9% 1000 ML BAG* 1,000 ML IV SCH (04:40)
[2017-01-26] MEDS: Piperacillin/Tazobac ADVAN(*) 3.375 GM in NS 0.9% 100 ML* 100 ML IVPB SCH ×3 (04:41→20:59)
[2017-01-26] MEDS: Ketorolac INJ* 30 MG/ML 1 ML VIAL IV PUSH SCH ×2 (05:54→11:00)
[2017-01-26] MEDS: Heparin VIAL(*) 5000 UNITS/ML VIAL (FIVE THOUSAND) SUBCUT SCH ×3 (05:55→21:01)
[2017-01-26 07:50] LABS: BUN/Creatinine Ratio 3.8 (8-20); Blood Urea Nitrogen 3 mg/dL (6-24); CO2 Carbon Dioxide 20 mmol/L (22-32); Chloride 105 mmol/L (101-111); EGFR African American 111.5 (>60); EGFR Non-African American 86.7 (>60); Glucose 102 mg/dL (70-100); Phosphorus 3.1 mg/dL (2.5-5.0); Sodium 134 mmol/L (133-145)
[2017-01-26 08:04] LABS: Anion Gap 9 mmol/L (2-11)
--- NOTE | 2017-01-26 09:00 | PN ---
Subjective Date of Service: 01/26/17 Interval History: Pt feels well. no pain, apart for a "soreness" at the incision site Family History: Unchanged from Admission Social History: Unchanged from Admission Past Medical History: Unchanged from Admission Objective Active Medications: Acetaminophen (Tylenol Supp*) 650 mg UT Q6H PRN PRN Reason: FEVER/PAIN Last Admin: 01/22/17 09:22 Dose: 650 mg Famotidine (Pepcid Iv*) 20 mg IV BID [facility] Last Admin: 01/25/17 20:50 Dose: 20 mg Heparin Sodium (Porcine) (Heparin Vial(*)) 5,000 units SUBCUT Q8HR [facility] Last Admin: 01/26/17 05:55 Dose: 5,000 units Piperacillin Sod/Tazobactam (Sod 3.375 gm/ Sodium Chloride) 100 mls @ 25 mls/ hr IVPB Q8H [facility] Last Admin: 01/26/17 04:41 Dose: 25 mls/hr Ketorolac Tromethamine (Toradol Inj*) 30 mg IV PUSH Q6H [facility] Stop: 01/27/17 23:59 Last Admin: 01/26/17 05:54 Dose: 30 mg Ondansetron HCl (Zofran Inj*) 4 mg IV Q6H PRN PRN Reason: NAUSEA Last Admin: 01/21/17 13:18 Dose: 4 mg Oxycodone/Acetaminophen (Percocet 5/325 Tab*) 1 tab PO Q4H PRN PRN Reason: PAIN - MILD TO MODERATE Oxycodone/Acetaminophen (Percocet 5/325 Tab*) 2 tab PO Q6H PRN PRN Reason: PAIN - SEVERE Prochlorperazine Edisylate (Compazine Inj*) 10 mg IV Q6H PRN PRN Reason: NAUSEA Last Admin: 01/20/17 22:19 Dose: 10 unit Vital Signs 01/25/17 01/25/17 01/25/17 09:00 11:29 15:23 Temperature 97.5 F 98.3 F Pulse Rate 81 78 Respiratory 16 16 16 Rate Blood Pressure 127/78 133/70 (mmHg) O2 Sat by Pulse 94 99 97 Oximetry 01/25/17 01/25/17 01/25/17 19:25 20:56 23:37 Temperature 99.6 F Pulse Rate 81 Respiratory 16 18 18 Rate Blood Pressure 112/61 (mmHg) O2 Sat by Pulse 99 Oximetry 01/25/17 01/26/17 01/26/17 23:49 00:47 03:22 Temperature 99.7 F 98.5 F Pulse Rate 91 82 Respiratory 16 16 16 Rate Blood Pressure 135/70 123/73 (mmHg) O2 Sat by Pulse 94 98 Oximetry 01/26/17 07:14 Temperature 98.0 F Pulse Rate 73 Respiratory 16 Rate Blood Pressure 119/72 (mmHg) O2 Sat by Pulse 97 Oximetry Oxygen Devices in Use Now: None Appearance: 27 yo f in nAD, aAOx3 Eyes: No Scleral Icterus, PERRLA Ears/Nose/Mouth/Throat: NL Teeth, Lips, Gums, Mucous Membranes Moist Neck: NL Appearance and Movements; NL JVP, Trachea Midline Respiratory: Symmetrical Chest Expansion and Respiratory Effort, Clear to Auscultation Cardiovascular: NL Sounds; No Murmurs; No JVD, RRR Abdominal: NL Sounds; No Tenderness; No Distention, No Hepatosplenomegaly Lymphatic: No Cervical Adenopathy Extremities: No Edema, No Clubbing, Cyanosis Skin: No Rash or Ulcers, No Nodules or Sclerosis, - - incision not inspected Neurological: Alert and Oriented x 3, NL Muscle Strength and Tone Result Diagrams: 01/25/17 04:21 01/26/17 05:59 Additional Lab and Data: . Microbiology and Other Data: Microbiology 01/21/17 19:49 Aerobic Blood Culture - Preliminary Blood Venous No Growth Day 1 Anaerobic Blood Culture - Preliminary No Growth Day 1 01/21/17 20:02 Aerobic Blood Culture - Preliminary Blood Venous No Growth Day 1 Anaerobic Blood Culture - Preliminary No Growth Day 1 Assess/Plan/Problems-Billing Ms. Xavier is a 27 y/o F w/ hx only of appendectomy who presented to the ER w/ the c/o of abdominal pain found to have a small bowel obstruction. - Patient Problems (1) Small bowel obstruction due to adhesions Comment: -s/p ex lap on 01/21/17-found to have necrotic bowel s/p resection of 2 ft of R colon. Abd closed. surgery following. Due to extensive bowel necrosis and SIRS periop- cont Zosyn per surgery. -Post op ileus resolved. will change primary service to surgery-D/w Dr. Greene. Medicine will sign off (2) DVT prophylaxis Comment: HSQ (3) Hypomagnesemia Comment: resolved (4) Tachycardia Comment: due to post op SIRS and electrolyte abn. resolved Echo shows EF 60% (5) Postoperative anemia Comment: acute, EBL 150 ml hemodiution also contributing Status and Disposition: Inpatient . Medicine will sign off. Dr. Greene will be the primary attending
[2017-01-26] MEDS: Famotidine IV* 10 MG/ML 2 ML (20 mg) IV SCH ×2 (09:16→20:56)
--- NOTE | 2017-01-26 10:01 | PN ---
Progress Note - Progress Note Date of Service: 01/26/17 SOAP: Subjective: Pt seen and examined. Feeling better. Pos flatus, loose BMs. No N/V Objective: af vss lungs clear abod: soft/ less distended/NT mild erythema at incision no calf tenderness path P Assessment: POD 5 ex lap, ileocecal resection Plan: advance diet abx to finish today d/c planning for f/u path
[2017-01-26] MEDS ORDERED: Acetaminophen TAB* 325 MG PO PRN (13:56)
[2017-01-26] MEDS: Ibuprofen TAB* 600 MG PO PRN (20:56)
[2017-01-27 05:47] LABS: BUN/Creatinine Ratio 6.8 (8-20); Calcium 8.3 mg/dL (8.6-10.3); EGFR African American 123.9 (>60); EGFR Non-African American 96.4 (>60); Magnesium 1.7 mg/dL (1.9-2.7); Phosphorus 4.2 mg/dL (2.5-5.0); Potassium 3.8 mmol/L (3.5-5.0)
[2017-01-27] MEDS: Heparin VIAL(*) 5000 UNITS/ML VIAL (FIVE THOUSAND) SUBCUT SCH (05:59)
[2017-01-27] MEDS: Ibuprofen TAB* 600 MG PO PRN (06:02)
[2017-01-27 08:40] VITALS: BP 116/63
[2017-01-27] MEDS: Famotidine IV* 10 MG/ML 2 ML (20 mg) IV SCH (08:44)
== END 2017-01-27 09:40 | disposition home or self-care (01) | DRG 329 ==
LOC: ED 20:10 → SSU 01-19 01:29 → MED 01-20 10:40 → SSU 01-22 01:45
PROVIDERS: ADMIT Hospitalist; ATTEND Surgery
PROC: 0WJP4ZZ Inspection of Gastrointestinal Tract, Percutaneous Endoscopic Approach (ICD-10-PCS; 2017-01-21)
PROC: 0DBL0ZZ Excision of Transverse Colon, Open Approach (ICD-10-PCS; 2017-01-21)
PROC: 0DBH0ZZ Excision of Cecum, Open Approach (ICD-10-PCS; principal; 2017-01-21 15:45)
DX: K56.50 Intestinal adhesions [bands], unspecified as to partial versus complete obstruction (principal); K55.029 Acute infarction of small intestine, extent unspecified; K46.0 Unspecified abdominal hernia with obstruction, without gangrene; E83.42 Hypomagnesemia; D62 Acute posthemorrhagic anemia; K56.7 Ileus, unspecified; R40.2412 Glasgow coma scale score 13-15, at arrival to emergency department; Z53.31 Laparoscopic surgical procedure converted to open procedure; Z72.89 Other problems related to lifestyle
CPT/HCPCS: 36415; 74000; 74020; 74177; 76705; 76830; 80048; 80053; 81003; 83605; 83690; 83735; 84100; 84484; 84702; 85025; 85610; 85730; 86140; 86141; 87040; 87480; 87491; 87510; 87591; 87661; 88307; 93005; 93306; A9270-GY; J0153; J0330; J0690; J0780; J1100; J1170; J1644; J1885; J2060; J2250; J2270; J2405; J2543; J2704; J3010; J3475; J3480; J3490; Q9967